=== PATIENT | male | born 1945 | race Caucasian/White ===

== ENCOUNTER 2023-08-31 10:53 | Outpatient (CLI) | payer MEDICARE, OTHER ==
[2023-08-31 17:41] LABS: HCT - HEMATOCRIT 41.3 % (42.0-52.0); HGB - HEMOGLOBIN 13.5 g/dL (14.0-18.0); MEAN CORPUSCULAR HEMOGLOBIN 30.9 pg (27.0-31.0); MEAN CORPUSCULAR HGB CONC 32.7 g/dL (32.0-36.0); MEAN CORPUSCULAR VOLUME 94.5 fL (80.0-94.0); MEAN PLATELET VOLUME 10.4 fL (7.4-11.4); RED BLOOD COUNT 4.37 10^6/uL (4.70-6.10); RED CELL DISTRIBUTION WIDTH 12.9 % (12.0-15.0); WHITE BLOOD COUNT 7.2 x10^3/uL (4.8-10.8)
[2023-08-31 17:59] LABS: ALBUMIN 4.1 g/dL (3.2-5.5); ALBUMIN/GLOBULIN RATIO 1.4 (1.0-2.2); ALKALINE PHOSPHATASE 85 IU/L (42-121); ALT ALANINE AMINOTRANSFERASE 21 IU/L (10-60); AST ASPARTATE AMINOTRANSFERASE 18 IU/L (10-42); BILIRUBIN,TOTAL 0.5 mg/dL (0.2-1.0); BUN - BLOOD UREA NITROGEN 19 mg/dL (6-20); CALCIUM 9.8 mg/dL (8.5-10.3); CARBON DIOXIDE - CO2 26 mmol/L (21-32); CHLORIDE 101 mmol/L (101-111); CHOL/HDL RATIO 3.8 (<5.0); CHOLESTEROL 195 mg/dL; CREATININE 1.2 mg/dL (0.6-1.3); GFR - MDRD 59 (>89); GLUCOSE 313 mg/dL (74-104); HDL CHOLESTEROL 51 mg/dL; LDL CHOLESTEROL,CALCULATED 94 mg/dL; LDL/HDL RATIO 1.8 (<3.6); POTASSIUM 4.3 mmol/L (3.5-4.5); SODIUM 137 mmol/L (135-145); TRIGLYCERIDES 249 mg/dL (48-352); VLDL CHOLESTEROL 50 mg/dL
[2023-08-31 18:07] LABS: THYROID STIMULATING HORMONE 2.94 uIU/mL (0.34-5.60)
[2023-08-31 18:12] LABS: FERRITIN 22.1 ng/mL (23.9-336.2)
[2023-08-31 21:10] LABS: ESTIMATED AVERAGE GLUCOSE 212 mg/dL (70-100)
== END 2023-08-31 10:54 | disposition home or self-care (01) ==
LOC: LAB.N 10:53
PROVIDERS: ATTEND Family Medicine
DX: I10 Essential (primary) hypertension (principal); G47.00 Insomnia, unspecified; G25.81 Restless legs syndrome; E11.65 Type 2 diabetes mellitus with hyperglycemia; N40.1 Benign prostatic hyperplasia with lower urinary tract symptoms
CPT/HCPCS: 36415; 80053; 80061; 82728; 83036; 83721; 83880; 84153; 84443; 85027

== ENCOUNTER 2023-09-23 15:32 | Emergency (ER) | payer MEDICARE, OTHER ==
[2023-09-23 16:09] LABS: BASOPHILS % (AUTO) 0.4 %; EOSINOPHILS # (AUTO) 0.1 10^3/uL (0.0-0.7); EOSINOPHILS % (AUTO) 1.3 %; HCT - HEMATOCRIT 43.9 % (42.0-52.0); HGB - HEMOGLOBIN 14.8 g/dL (14.0-18.0); LYMPHOCYTES # (AUTO) 2.5 10^3/uL (1.5-3.5); LYMPHOCYTES % (AUTO) 24.5 %; MEAN CORPUSCULAR HEMOGLOBIN 31.8 pg (27.0-31.0); MEAN CORPUSCULAR HGB CONC 33.7 g/dL (32.0-36.0); MEAN CORPUSCULAR VOLUME 94.2 fL (80.0-94.0); MONOCYTES # (AUTO) 0.9 10^3/uL (0.0-1.0); MONOCYTES % (AUTO) 8.3 %; NEUTROPHILS # (AUTO) 6.7 10^3/uL (1.5-6.6); NEUTROPHILS % (AUTO) 64.9 %; PLT - PLATELET COUNT 224 10^3/uL (130-450); RED BLOOD COUNT 4.66 10^6/uL (4.70-6.10); RED CELL DISTRIBUTION WIDTH 12.6 % (12.0-15.0); WHITE BLOOD COUNT 10.4 x10^3/uL (4.8-10.8)
[2023-09-23 16:22] LABS: ALBUMIN 4.6 g/dL (3.2-5.5); ALBUMIN/GLOBULIN RATIO 1.5 (1.0-2.2); BILIRUBIN,TOTAL 0.6 mg/dL (0.2-1.0); CREATININE 1.5 mg/dL (0.6-1.3); POTASSIUM 3.5 mmol/L (3.5-4.5); TOTAL PROTEIN 7.7 g/dL (6.4-8.9)
[2023-09-23 16:29] LABS: TROPONIN I HIGH SENSITIVITY 10.7 ng/L (2.3-19.7)
--- NOTE | 2023-09-23 16:57 | XRAY Report ---
PROCEDURE: Chest 1V INDICATIONS: Chest pain TECHNIQUE: One view of the chest was acquired. COMPARISON: None. FINDINGS: Surgical changes and devices: Left-sided pacer. Lungs and pleura: No pleural effusions or pneumothorax. Lungs are clear. Mediastinum: Mediastinal contours appear normal. Heart size is normal. Bones and chest wall: No suspicious bony lesions. Overlying soft tissues appear unremarkable. IMPRESSION: No acute cardiopulmonary process. Reviewed by: Rito Mcdermott MD on 09/23/2023 4:56 PM PST Approved by: Rito Mcdermott MD on 09/23/2023 4:56 PM [facility] Station ID: [id number]
--- NOTE | 2023-09-23 17:20 | ED Physician Documentation ---
PD HPI DYSPNEA - Stated complaint Stated Complaint: SOA,FATIGUE - Chief complaint Chief Complaint: Cardiac - History obtained from History obtained from: Patient, Family - Additional information Additional information: 78-year-old male who is morbidly obese poorly controlled type 2 diabetes had a pacemaker placed about 1 year ago presents emergency department for increased shortness of air. Patient says over the last couple weeks he feels like his pants are getting a lot tighter on him and he is feeling overall larger with increased shortness of air. He has had no medication changes no diet changes. He reached out to his professional architect to see if there has been any cardiac events through monitoring of the pacemaker and they have not been able to visualize anything. He also has a CGM for his type 2 diabetes normally he runs really high he takes 40 units of glargine twice a day and this morning took 40 units of lispro for his sliding scale insulin. He said he had no diet changes today but as he has been here throughout the ER visit he feels like he is having a hard time keeping his blood sugar up blood sugar comes down to the 60s 70s he will eat some crackers and it continues to come down. He denies any chest pain no recent upper respiratory infection symptoms no fevers or chills. PD PAST MEDICAL HISTORY - Past Medical History Past Medical History: Yes Cardiovascular: Hypertension, Other Endocrine/Autoimmune: Type 2 diabetes - Past Surgical History Past Surgical History: Yes General: Appendectomy, Other Cardiovascular: Pacemaker - Allergies Allergies/Adverse Reactions: Allergies Allergy/AdvReac Type Severity Reaction Status Date / Time No Known Drug Allergies Allergy Verified 09/23/23 15:46 - Social History Does the pt smoke?: No Smoking Status: Never smoker PD ED PE NORMAL - Vitals Vital signs reviewed: Yes - General General: Alert and oriented X 3, No acute distress, Well developed/nourished - HEENT HEENT: PERRL, EOMI, Moist mucous membranes - Cardiac Cardiac: Strong equal pulses, Other (irregular, pacemaker) - Respiratory Respiratory: No respiratory distress, Other (diminshed bilat) - Abdomen Abdomen: Normal bowel sounds, Soft, Non tender, Non distended - Derm Derm: Other (BLE cyanotic, appears to have chronic Venous stasis) - Extremities Extremities: No calf tenderness / cord (non pitting edeme to BLE) Results - Vitals Vitals: Vital Signs - 24 hr 09/23/23 09/23/23 09/23/23 15:39 17:49 19:35 Temperature 36.6 C Heart Rate 87 105 H 107 H Respiratory 22 23 22 Rate Blood Pressure 140/72 H 188/109 H 165/96 H O2 Saturation 98 91 L 94 09/23/23 21:15 Temperature Heart Rate 88 Respiratory 18 Rate Blood Pressure 182/96 H O2 Saturation 98 Oxygen O2 Source Room air - EKG (time done) 1602 EKG releavant findings:: EKG personally interpreted by author of this note. Relevant findings are: Rate: Rate (enter#) (83) Rhythm: Paced (V paced) Bovina: LAD Intervals: LBBB QRS: Normal Ischemia: Normal ST segments 1833 EKG releavant findings:: EKG personally interpreted by author of this note. Relevant findings are: Rate: Rate (enter#) (98) Rhythm: Other (V-paced, bigeminy) Bovina: LAD Intervals: Prolonged VA - Labs Labs: Laboratory Tests 09/23/23 09/23/23 09/23/23 16:03 16:03 16:03 WBC 10.4 RBC 4.66 L Hgb 14.8 Hct 43.9 MCV 94.2 H MCH 31.8 H MCHC 33.7 RDW 12.6 Plt Count 224 MPV 9.0 Neut # (Auto) 6.7 H Lymph # (Auto) 2.5 Dewitt # (Auto) 0.9 Eos # (Auto) 0.1 Baso # (Auto) 0.0 Absolute Nucleated RBC 0.00 Nucleated RBC % 0.0 Sodium 137 Potassium 3.5 Chloride 101 Carbon Dioxide 29 Anion Gap 7.0 BUN 21 H Creatinine 1.5 H Estimated GFR (MDRD) 45 L Glucose 71 L Calcium 10.0 Total Bilirubin 0.6 AST 24 ALT 24 Alkaline Phosphatase 87 Troponin I High Sens 10.7 B-Natriuretic Peptide 15 Total Protein 7.7 Albumin 4.6 Globulin 3.1 Albumin/Globulin Ratio 1.5 Lipase 28 - Rads (name of study) chest xray Relevant Findings:: Final report received, EMP independent interpretation of test (no cardiomegaly, lungs clear) PD Medical Decision Making - ED course ED course: 78-year-old male with morbid obesity and poorly controlled type 2 diabetes presents with shortness of air and concerns of weight gain without any change in diet per patient. Hematology does not reveal any leukocytosis no anemia, CMP does not have any electrolyte abnormalities, potassium 3.5, overall kidney function appears to be unremarkable, glucose is 71 which is abnormal for patient. He says that he takes long-acting and short acting insulin has not had any change in his diet today. He will be told to skip his evening basal insulin tonight. His BNP is not elevated making me less suspicious of this being possibly related to heart failure exacerbation, his troponin is also found to be within normal limits. He had a 1 view initial chest x-ray complete which did not show any cardiomegaly or other acute abnormalities but because patient is continuing to complain of ongoing shortness of air and because of his past medical history as well as his age we will do a CTA to rule out possible pulmonary embolism or other acute findings as Wells score for PE is 3. CTA does not reveal any acute abnormalities and does not reveal a pulmonary embolism. Blood sugar came back up on its own. Patient was informed his findings and that everything overall is unremarkable. He was informed to follow-up with his primary care provider and to look into possibly working on diet control for his labile type 2 diabetes as well as his recent weight gain. I am not concerned of any CHF exacerbation, EKG does not appear to be ischemic, he has no smoking history not worried about this being a COPD exacerbation, he is satting well. He safe for discharge she was given strict return precautions and told to follow-up with his primary care provider about your visit. Departure - Departure Disposition: 01 Home, Self Care Clinical Impression: Shortness of breath, Weight gain Instructions: Weight Manage Get Started Comments: Thank you for trusting us with your care we have done a very thorough and complete exam and I am not seeing any acute abnormalities at this time that could be contributing to your weight gain and shortness of breath. Your CTA does not show any concerning symptoms that this could be related to a possible pulmonary embolism, or heart failure. Please follow-up with your primary care provider about your ongoing weight gain that you are experiencing as well as her shortness of breath but I think that moving forward the best bet would be to start working on trying to work on your diet to help with some weight loss. Please come back to the emergency department if you start to experience any chest pain, fevers or chills, increased shortness of breath worse than what it is now, or any other concerning symptoms. Wishing you a speedy recovery! Forms: PCP List Discharge Date/Time: 09/23/23 21:15
[2023-09-23] MEDS ORDERED: iohexoL-300 100 ML VIAL ONE (18:47)
[2023-09-23] MEDS ORDERED: iohexoL-300 100 ML VIAL IVP ONE (19:56)
--- NOTE | 2023-09-23 20:20 | CT Report ---
PROCEDURE: Angio Chest INDICATIONS: SOA CONTRAST: 80mL Omni 300 TECHNIQUE: After the administration of intravenous contrast, 2 mm axial images were acquired from the pulmonary apices to the posterior costophrenic angles during the arterial phase. In addition, 1 mm lung kernel and 5 mm soft tissue kernel reconstructions were performed. 3-dimensional coronal oblique maximum int ensity projection (MIP) reformats, 8 mm axial MIP, and 5 mm coronal and sagittal MPR reformats were t hen performed through the thorax. For radiation dose reduction, the following was used: automated exp osure control, adjustment of mA and/or kV according to patient size. COMPARISON: None. FINDINGS: Image quality: Diagnostic. Large vessels: No filling defects within the opacified pulmonary arteries, accounting for motion and contrast timing. No evidence of acute aortic syndrome or aortic aneurysm. Lungs and pleura: No acute consolidation. No pleural effusions. No pneumothorax. No suspicious pulmo nary nodules which require follow up. Bibasilar atelectasis. No septal thickening or nodularity. Vis ualized airways are clear. Mediastinum: Heart size is normal. No pericardial effusion. Multivessel coronary artery atherosclerot ic calcifications. No large vessel abnormality. No mediastinal adenopathy by size criteria. Chest wall and lower neck: Thyroid is unremarkable. No axillary or supraclavicular adenopathy by size . Thoracic spinal cord stimulator leads are noted. Left-sided cardiac pacemaker device is in place. Bones: No aggressive osseous abnormality. No acute compression fractures. Multilevel spondylosis. Upper Abdomen: Cholelithiasis without CT evidence for acute cholecystitis. IMPRESSION: CT angiogram of the chest without evidence for acute pulmonary embolus or acute right-sided heart str ain. No acute cardiopulmonary abnormalities identified. Atherosclerotic vascular disease. Cholelithiasis without CT evidence for acute cholecystitis. Reviewed by: Erickson Johnson MD on 09/23/2023 8:19 PM PST Approved by: Erickson Johnson MD on 09/23/2023 8:19 PM PST Station ID: [id number]
[2023-09-23 21:21] VITALS: BP 182/96; O2SAT 98
== END 2023-09-23 21:15 | disposition home or self-care (01) ==
LOC: ED 15:32
DX: R06.02 Shortness of breath (principal); E66.01 Morbid (severe) obesity due to excess calories; E11.9 Type 2 diabetes mellitus without complications; I10 Essential (primary) hypertension; Z79.4 Long term (current) use of insulin; Z95.0 Presence of cardiac pacemaker
CPT/HCPCS: 36415; 71045; 71275; 80053; 83690; 83880; 84484; 85025; 93005; 99284; Q9967

== ENCOUNTER 2023-10-08 13:46 | Outpatient (CLI) | payer MEDICARE, OTHER ==
--- NOTE | 2023-10-08 14:26 | Sleep Patient Instructions ---
Sleep Center Visit Summary - Patient Visit Information Reason for Visit: Initial consultation - Patient Instructions Additional Instructions: You will continue with CPAP therapy with pressure set at 14-20 cmH2O. A supply prescription will be updated with your DME once we have a copy of last sleep study. If we cannot obtain a copy, we will have to have you do a sleep study to verify diagnosis. We encourage you to continue to try to lose weight. Please follow up with the sleep care office in 1 year if able to get your sleep study or after sleep study if needed. - Clinic Information Contact: [facility] [address] [place] [address] [email or web address] T: [phone]
--- NOTE | 2023-10-08 14:36 | SLEEP CARE CONSULTATION ---
Information from patient questionnaire entered by Tari Escudero. I have reviewed and concur with the information entered by Tari Escudero. This document represents the service I personally performed and the decisions made by me, Anayeli Snell ARNP. History of Present Illness Service Date and Time: 10/08/2023 1346 Reason for Visit: New patient, Previously diagnosed sleep apnea, sleep apnea on CPAP therapy Chief Complaint: reports: Other (UPDATE SUPPLIES) Date of Onset: 15YRS Usual bedtime: 11PM Time it takes to fall asleep: LESS THAN 10 MINS Snores at night: No Observed to quit breathing while asleep: No Sleeps alone due to snoring: No Number of times waking at night: 1 Reasons for waking at night: reports: Bathroom Toss, Turn, or Twitch while sleeping: No Recalls having dreams: Yes Feels refreshed in the morning: No Morning headache: No Sleepy or fatigued during the day: Yes Ever fallen asleep while driving: Yes Takes day naps: Yes Dreams during day naps: Yes Prior sleep studies: Yes Year and Where: 20YRS AGO? [facility] Additional HPI information: ABBY NEFF was previously diagnosed to have unknown, AHI unknown, sleep apnea- hypopnea syndrome and comes in today for CPAP therapy. He does not remember where his last sleep study done in early in [place], [place]. He did remember the last sleep clinic was [facility] in [place], [place]. We will see if we can get copy of sleep study from last sleep provider or his DME. - Parasomnia Symptoms Ever been unable to move upon waking from sleep: No Walks in sleep: No Talks in sleep: No Ever acted out dreams in sleep: No Ever felt weak in the knees when startled or emotional: No Bothered by creepy, crawly, restless sensations in legs: Yes Problems with memory or concentration: Yes CPAP Compliance Data - Data Reviewed with Patient Average duration of nightly device use: 10 hours 20 minutes Compliance rate %: 96.7 ( days used) Current pressure setting (cmH2O): 14-20 Average residual AHI: 1.4 Central apnea: 0.1 Obstructive apnea: 0.9 Hypopnea: 0.4 Average large leak: 9 mins 23 secs Compliance data discussion: He has a [employer] Dreamstation that he says was not affected by the recall. He obtained this CPAP he thinks 15 years ago. He has been getting his supplies from [facility]. He is using a full face mask, ResMed AirFit F20, medium cushion. Subjective Patient concerns: reports: mask discomfort (cushion seems small, resting just under bottom lip), dry mouth, nose, throat (dry mouth). denies: aerophagia, air blowing in eyes, mask leak noise, condensation in mask/hose, nasal congestion, epistaxis Observed to snore while using device: No Current pressure setting perceived as: comfortable On therapy, patient: reports: sleeping better, awakening more refreshed, being more awake and alert during the day, more rested overall. 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 Patient is and lives in . Have you smoked in the past 12 months: No Cigarettes per day (20/pack): 40 Years of smokin Quit date: 1988 Smoking Pack Years: 30.0 Alcohol use: No Caffeine use: Yes Caffeine amount and frequency: 1-2 DAILY Family History Family history of sleep disordered breathing: No Allergies and Home Medications Known drug allergies: No Drug allergies reviewed: Yes Home medication list reviewed: Yes (he forgot medication list; will bring in later) Allergy and home medication list: Allergies No Known Drug Allergies Allergy (Verified 10/06/23 11:47) Review of Systems Weight gain over past 5 years: 20 Cardiovascular: reports: high blood pressure, leg or foot swelling Respiratory: reports: shortness of breath, chronic cough Gastrointestinal: reports: heartburn Urinary: reports: frequency, impotence Neurological: reports: fainting or unconsciousness Psychiatric: reports: depression Ear/Nose/Throat: reports: nasal congestion, dry mouth/throat, wisdom teeth removed Endocrine: reports: increased urination Musculoskeletal: reports: back pain Immunologic: reports: itching Physical Exam Vital signs obtained and entered by: TARI Thomas MA Blood Pressure: 145/68 (LEFT ARM) Cuff size: regular Heart Rate: 83 O2 Saturation: 95 Height: 6 ft 2 in Weight: 322 lb 3.2 oz Body Mass Index: 41.3 BMI Classification: Morbidly Obese Neck circumference: 20.5 Mouth and throat: narrow oropharynx Soft palate: long Hard palate: normal Uvula: normal Uvula visualization: 0% Mallampati Class IV Tongue: enlarged in size with teeth verde on lateral edges Neck: normal w/o lymphadenopathy or thyromegaly Lungs: clear bilaterally Impression and Plan 1. Obstructive Sleep Apnea-Hypopnea Syndrome, unknown, with good treatment compliance and good apnea control. On CPAP therapy, the patient has better sleep quality and is more rested overall. He has a Dreamstation CPAP and he says that he checked and his machine was not on the recall. He is using [employer] for his supplies. He did not have a copy of his last sleep study. If we are unable to obtain copy than I explained that he will have to do another study to verify diagnosis. He voiced understanding. Patient's apnea severity and rationale for treatment to reduce apnea, improve sleep quality and reduce cardiovascular and cerebrovascular events was reviewed. I also reviewed the benefit of consistent device use of CPAP for hypertension, cardiac disease, diabetes, gastric reflux and depression. 2. Obesity, unspecified. Currently patients BMI is 41.3. Obesity increases the risk of apnea, CPAP pressure requirements and overall health risks especially cardiovascular and diabetes. Thus patient is advised to lose weight. * Continue auto CPAP pressure at 14-20 cmH2O * Update supply prescription once we have copy of last sleep study * Polysomnography if we need to verify diagnosis, unable to get copy of sleep study * Notify me if snoring with mask or feeling that the pressure is too much or too little * Attempt to lose weight * Call this office if any problems using CPAP * Return for follow up in 12 months if able to get copy of sleep study or after PSG/HST, or sooner if concerns arise Counseling Topics: Spare mask, Weight loss health impact Prescriptions: Device supplies Follow up with Sleep Care in: 1 year (or after PSG) Visit Type: In Office Time Spent with Patient (minutes): 36 Provider Statement: I spent 100% of the Face to Face Visit with the patient with greater than 50% spent counseling the patient and coordination of care.
[2023-10-08 15:02] VITALS: BP 145/68; O2SAT 95
== END 2023-10-08 13:47 | disposition home or self-care (01) ==
LOC: SC 13:46
PROVIDERS: ATTEND Nurse Practitioner Family
DX: G47.33 Obstructive sleep apnea (adult) (pediatric) (principal); E66.01 Morbid (severe) obesity due to excess calories; Z68.41 Body mass index [BMI] 40.0-44.9, adult; Z87.891 Personal history of nicotine dependence
CPT/HCPCS: 99203; G0463; 99212

== ENCOUNTER 2024-04-28 13:10 | Emergency (ER) | payer MEDICARE, OTHER ==
--- NOTE | 2024-04-28 15:24 | ED Physician Documentation ---
History of Present Illness - Stated complaint Stated Complaint: L LEG SWELLING - Chief complaint Chief Complaint: Ext Problem - Additonal information Additional information: Patient is a 78-year-old male presenting to the emergency department after his helper shear operator sent him here for evaluation after he was unable to get into wound care for another month. Patient has bilateral leg swelling and erythema with dry skin noted to bilateral legs. Patient wears compression stockings at baseline he is just not wearing them today but is very hindu with wearing them at home. He denies any fevers or chills. He has chronic bilateral venous stasis at home. He notes his legs have had no acute changes no new drainage no worsening swelling no increased pain. Elisabeth has been weraing compression stockings but not take any medications for his symptoms. PD PAST MEDICAL HISTORY - Past Medical History Past Medical History: Yes Cardiovascular: Hypertension, Other Endocrine/Autoimmune: Type 2 diabetes - Past Surgical History Past Surgical History: Yes General: Appendectomy, Other Cardiovascular: Pacemaker - Present Medications Home Medications: Ambulatory Orders Medication Instructions Recorded Confirmed Bacitracin Zinc Oint 1 applic TOP BID #1 each 04/28/24 Compress.stocking,Knee,Reg,Med 1 each MC DAILY #2 each 04/28/24 [T.e.d. Anti-Embolism Stocking] Hydrocortisone 1% Cream 1 applic TOP BID #28 gm 04/28/24 [Hydrocortisone] - Allergies Allergies/Adverse Reactions: Allergies Allergy/AdvReac Type Severity Reaction Status Date / Time lisinopril AdvReac Respiratory Verified 04/28/24 13:14 nickel AdvReac Rash Verified 04/28/24 13:14 - Social History Does the pt smoke?: No Smoking Status: Never smoker Does the pt drink ETOH?: No Does the pt have substance abuse?: No - Immunizations Immunizations are current?: Yes PD ED PE NORMAL - Vitals Vital signs reviewed: Yes - General General: Alert and oriented X 3 - HEENT HEENT: Atraumatic - Neck Neck: Supple, no meningeal sign - Cardiac Cardiac: RRR, No murmur, No gallop, No rub - Respiratory Respiratory: No respiratory distress, Clear bilaterally - Abdomen Abdomen: Normal bowel sounds, Non tender - Rectal Rectal: Deferred - Derm Derm: Other (Bilateral stasis dermatitis noted on examination with dry scaly skin to anterior and posterior legs. Mild erythema noted but equal bilaterally with 2+ pitting edema also equal bilaterally. Pulses intact good capillary refill and full range of motion of bilateral ankles digits and bilateral knees.) - Neuro Neuro: Alert and oriented X 3 Eye Opening: Spontaneous Motor: Obeys Commands Verbal: Oriented GCS Score: 15 Results - Vitals Vitals: Oxygen O2 Source Room air PD Medical Decision Making - ED course Complexity details: reviewed results ED course: Patient is a 78-year-old male presenting to the emergency department with bilateral leg rash and swelling. Patient notes this has been a chronic problem for him in the past he is following with wound care in the outpatient setting but unable to get in for an appointment for about a month. Patient does not put any creams or lotions on bilateral legs. He notes no new swelling no new pain no new discharge or fevers. Patient was sent here from his helper shear operator office after he called and updated them that he cannot see wound care for a month. Vital stable on arrival. Physical exam shows bilateral venous stasis dermatitis. Discussed with patient he can try creams that have sent to his pharmacy to help with his symptoms he should continue elevating bilateral legs and wearing compression stockings to help with the symptoms. Patient instructed to watch for any redness swelling discharge open wounds or pain to bilateral legs. Patient understands again he reports no new acute changes and feels bilateral leg swelling and irritation are stalbe and unchanging for multiple months. Departure - Departure Disposition: 01 Home, Self Care Clinical Impression: Venous stasis dermatitis of both lower extremities Condition: Good Prescriptions: Bacitracin Zinc Oint 1 applic TOP BID #1 each Hydrocortisone 1% Cream [Hydrocortisone] 1 applic TOP BID #28 gm Compress.stocking,Knee,Reg,Med [T.e.d. Anti-Embolism Stocking] 1 each DAILY #2 each Comments: Your leg palpable swelling and pain most likely secondary to stasis dermatitis. I have given you cream and topical antibiotic to help with symptoms at home. You should also use compression stockings to help with venous stasis. Keep leg elevated and watch for any pain in your legs fevers discharge from wounds or any other new or worsening symptoms return to the emergency department. Forms: PCP List Discharge Date/Time: 04/28/24 15:34
[2024-04-28 15:35] VITALS: BP 118/90; O2SAT 93
== END 2024-04-28 15:34 | disposition home or self-care (01) ==
LOC: ED 13:10
DX: I87.2 Venous insufficiency (chronic) (peripheral) (principal)
CPT/HCPCS: 99282; 99283

== ENCOUNTER 2025-02-03 20:37 | Observation (INO) ==
--- OUTSIDE RECORDS SUMMARY | 2025-02-03 20:56 | EXTERNAL MEDICAL SUMMARY RPT | Continuity of Care Document ---
Author Organization [place] Address [address] [address] Phone Care Team Providers Care Embroidery Assistant Name Role Phone Jackie Barnett Unavailable Unavailable Problems date description facility 2024-11-09 12:19 Shortness of breath [facility]24-[facility]20 14:13 Type 2 diabetes mellitus with h yperglycemia [facility] 2024-11-20 14:13 Essential (primary) hypertensio n [facility] 2024-11-20 14:13 Chronic kidney disease, stage 3 b [facility] 2024-11-20 14:53 Type 2 diabetes mellitus with h yperglycemia [facility] 2024-11-20 14:53 Essential (primary) hypertensio n [facility] 2024-11-20 14:53 Chronic kidney disease, stage 3 b [facility] 2024-11-29 10:57 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 [facility] 2024-11-29 10:57 Chronic diastolic (congestive) heart failure [facility] 2024-11-29 10:57 Venous insufficiency (chronic) (peripheral) [facility] 2024-11-29 10:57 Non-pressure chronic ulcer of other part of left lower leg limited to breakdown of skin [facility] 2024-11-29 10:57 Localized edema [facility] 2024-11-29 10:57 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 [facility] 2024-11-29 11:25 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 [facility] 2024-11-29 11:25 Chronic diastolic (congestive) heart failure [facility] 2024-11-29 11:25 Venous insufficiency (chronic) (peripheral) [facility] 2024-11-29 11:25 Non-pressure chronic ulcer of other part of left lower leg limited to breakdown of skin [facility] 2024-11-29 11:25 Localized edema [facility] 2024-11-29 11:25 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 [employer] 2024-12-06 10:55 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 [facility] 2024-12-06 10:55 Chronic diastolic (congestive) heart failure [facility] 2024-12-06 10:55 Venous insufficiency (chronic) (peripheral) [facility] 2024-12-06 10:55 Non-pressure chronic ulcer of other part of left lower leg limited to breakdown of skin [facility] 2024-12-06 10:55 Localized edema [facility] 2024-12-06 10:55 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 [employer] 2024-12-06 12:12 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 [facility] 2024-12-06 12:12 Chronic diastolic (congestive) heart failure [facility] 2024-12-06 12:12 Venous insufficiency (chronic) (peripheral) [facility] 2024-12-06 12:12 Non-pressure chronic ulcer of other part of left lower leg limited to breakdown of skin [facility] 2024-12-06 12:12 Localized edema [facility] 2024-12-06 12:12 detention (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 of [employer] 2024-12-12 11:32 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 [facility] 2024-12-12 11:32 Chronic diastolic (congestive) heart failure [facility] 2024-12-12 11:32 Venous insufficiency (chronic) (peripheral) [facility] 2024-12-12 11:32 Non-pressure chronic ulcer of other part of left lower leg limited to breakdown of skin [facility] 2024-12-12 11:32 Localized edema [facility] 2024-12-12 11:32 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 [employer] 2024-12-14 09:58 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 [facility] 2024-12-14 09:58 Chronic diastolic (congestive) heart failure [facility] 2024-12-14 09:58 Venous insufficiency (chronic) (peripheral) [facility] 2024-12-14 09:58 Non-pressure chronic ulcer of other part of left lower leg limited to breakdown of skin [facility] 2024-12-14 09:58 Localized edema [facility] 2024-12-14 09:58 detention (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 of [employer] 2024-12-14 11:31 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 [facility] 2024-12-14 11:31 Chronic diastolic (congestive) heart failure [facility] 2024-12-14 11:31 Venous insufficiency (chronic) (peripheral) [facility] 2024-12-14 11:31 Non-pressure chronic ulcer of other part of left lower leg limited to breakdown of skin [facility] 2024-12-14 11:31 Localized edema [facility] 2024-12-14 11:31 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 [employer] 2024-12-21 13:29 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 [facility] 2024-12-21 13:29 Chronic diastolic (congestive) heart failure [facility] 2024-12-21 13:29 Venous insufficiency (chronic) (peripheral) [facility] 2024-12-21 13:29 Non-pressure chronic ulcer of other part of left lower leg limited to breakdown of skin [facility] 2024-12-21 13:29 Localized edema [facility] 2024-12-21 13:29 detention (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 of [employer] 2024-12-21 13:47 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 [facility] 2024-12-21 13:47 Chronic diastolic (congestive) heart failure [facility] 2024-12-21 13:47 Venous insufficiency (chronic) (peripheral) [facility] 2024-12-21 13:47 Non-pressure chronic ulcer of other part of left lower leg limited to breakdown of skin [facility] 2024-12-21 13:47 Localized edema [facility] 2024-12-21 13:47 detention (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 of [employer] 2024-12-25 12:29 Type 2 diabetes mellitus with h yperglycemia [facility] 2024-12-25 12:29 Essential (primary) hypertensio n [facility] 2024-12-25 12:29 Chronic kidney disease, stage 3 unspecified [facility] 2024-12-26 07:19 Type 2 diabetes mellitus with h yperglycemia [facility] 2024-12-26 07:19 Essential (primary) hypertensio n [facility] 2024-12-26 07:19 Chronic kidney disease, stage 3 unspecified [facility] 2024-12-28 14:22 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 [facility] 2024-12-28 14:22 Chronic diastolic (congestive) heart failure [facility] 2024-12-28 14:22 Venous insufficiency (chronic) (peripheral) [facility] 2024-12-28 14:22 Orthostatic hypotension [facility] 2024-12-28 14:22 Local infection of t he skin and subcutaneous tissue, unspecified [facility] 2024-12-28 14:22 Non-pressure chronic ulcer of other part of left lower leg limited to breakdown of skin [facility] 2024-12-28 14:22 Other abnormalities of breathin g [facility] 2024-12-28 14:22 Other skin changes [facility] 2024-12-28 14:22 Localized edema [facility] 2024-12-28 14:22 detention (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 of anti coagulants [facility] 2024-12-28 14:22 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 [facility] 2024-12-28 15:06 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 [facility] 2024-12-28 15:06 Chronic diastolic (congestive) heart failure [facility] 2024-12-28 15:06 Venous insufficiency (chronic) (peripheral) [facility] 2024-12-28 15:06 Orthostatic hypotension [facility] 2024-12-28 15:06 Local infection of t he skin and subcutaneous tissue, unspecified [facility] 2024-12-28 15:06 Non-pressure chronic ulcer of other part of left lower leg limited to breakdown of skin [facility] 2024-12-28 15:06 Other abnormalities of breathin g [facility] 2024-12-28 15:06 Other skin changes [facility] 2024-12-28 15:06 Localized edema [facility] 2024-12-28 15:06 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 [facility] 2024-12-28 15:06 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 [facility] 2024-12-28 15:58 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 [facility] 2024-12-28 15:58 Chronic diastolic (congestive) heart failure [facility] 2024-12-28 15:58 Venous insufficiency (chronic) (peripheral) [facility] 2024-12-28 15:58 Orthostatic hypotension [facility] 2024-12-28 15:58 Local infection of t he skin and subcutaneous tissue, unspecified [facility] 2024-12-28 15:58 Non-pressure chronic ulcer of other part of left lower leg limited to breakdown of skin [facility] 2024-12-28 15:58 Other abnormalities of breathin g [facility] 2024-12-28 15:58 Other skin [facility] 2024-12-28 15:58 Localized edema [facility] 2024-12-28 15:58 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 [facility] 2024-12-28 15:58 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 [facility] 2025-01-05 14:23 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 [facility] 2025-01-05 14:23 Chronic diastolic (congestive) heart failure [facility] 2025-01-05 14:23 Venous insufficiency (chronic) (peripheral) [facility] 2025-01-05 14:23 Orthostatic hypotension [facility] 2025-01-05 14:23 Local infection of t he skin and subcutaneous tissue, unspecified [facility] 2025-01-05 14:23 Non-pressure chronic ulcer of other part of left lower leg limited to breakdown of skin [facility] 2025-01-05 14:23 Other abnormalities of breathin g [facility] 2025-01-05 14:23 Other skin changes [facility] 2025-01-05 14:23 Localized edema [facility] 2025-01-05 14:23 detention (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 of anti coagulants [facility] 2025-01-05 14:23 detention (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 of insu colten [facility] 2025-01-05 14:55 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 [facility] 2025-01-05 14:55 Chronic diastolic (congestive) heart failure [facility] 2025-01-05 14:55 Venous insufficiency (chronic) (peripheral) [facility] 2025-01-05 14:55 Orthostatic hypotension [facility] 2025-01-05 14:55 Local infection of t he skin and subcutaneous tissue, unspecified [facility] 2025-01-05 14:55 Non-pressure chronic ulcer of other part of left lower leg limited to breakdown of skin [facility] 2025-01-05 14:55 Other abnormalities of breathin g [facility] 2025-01-05 14:55 Other skin changes [facility] 2025-01-05 14:55 Localized edema [facility] 2025-01-05 14:55 detention (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 of anti coagulants [facility] 2025-01-05 14:55 detention (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 of insu colten [facility] 2025-01-10 09:13 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 [facility] 2025-01-10 09:13 Chronic diastolic (congestive) heart failure [facility] 2025-01-10 09:13 Venous insufficiency (chronic) (peripheral) [facility] 2025-01-10 09:13 Orthostatic hypotension [facility] 2025-01-10 09:13 Local infection of t he skin and subcutaneous tissue, unspecified [facility] 2025-01-10 09:13 Non-pressure chronic ulcer of other part of left lower leg limited to breakdown of skin [facility] 2025-01-10 09:13 Other abnormalities of breathin g [facility] 2025-01-10 09:13 Other skin changes [facility] 2025-01-10 09:13 Localized edema [facility] 2025-01-10 09:13 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 [facility] 2025-01-10 09:13 detention (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 of insu colten [facility] 2025-01-10 15:42 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 [facility] 2025-01-10 15:42 Chronic diastolic (congestive) heart failure [facility] 2025-01-10 15:42 Venous insufficiency (chronic) (peripheral) [facility] 2025-01-10 15:42 Orthostatic hypotension [facility] 2025-01-10 15:42 Local infection of t he skin and subcutaneous tissue, unspecified [facility] 2025-01-10 15:42 Non-pressure chronic ulcer of other part of left lower leg limited to breakdown of skin [facility] 2025-01-10 15:42 Other abnormalities of breathin g [facility] 2025-01-10 15:42 Other skin changes [facility] 2025-01-10 15:42 Localized edema [facility] 2025-01-10 15:42 detention (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 of anti coagulants [facility] 2025-01-10 15:42 detention (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 of insu colten [facility] 2025-01-10 16:10 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 [facility] 2025-01-10 16:10 Chronic diastolic (congestive) heart failure [facility] 2025-01-10 16:10 Venous insufficiency (chronic) (peripheral) [facility] 2025-01-10 16:10 Orthostatic hypotension [facility] 2025-01-10 16:10 Local infection of t he skin and subcutaneous tissue, unspecified [facility] 2025-01-10 16:10 Non-pressure chronic ulcer of other part of left lower leg limited to breakdown of skin [facility] 2025-01-10 16:10 Other abnormalities of breathin g [facility] 2025-01-10 16:10 [facility] 16:10 Localized edema [facility] 2025-01-10 16:10 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 [facility] 2025-01-10 16:10 detention (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 of insu colten [facility] 2025-01-10 16:13 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 [facility] 2025-01-10 16:13 Chronic diastolic (congestive) heart failure [facility] 2025-01-10 16:13 Venous insufficiency (chronic) (peripheral) [facility] 2025-01-10 16:13 Orthostatic hypotension [facility] 2025-01-10 16:13 Local infection of t he skin and subcutaneous tissue, unspecified [facility] 2025-01-10 16:13 Non-pressure chronic ulcer of other part of left lower leg limited to breakdown of skin [facility] 2025-01-10 16:13 Other abnormalities of breathin g [facility] 2025-01-10 16:13 Other skin changes [facility] 2025-01-10 16:13 Localized edema [facility] 2025-01-10 16:13 detention (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 of anti coagulants [facility] 2025-01-10 16:13 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 [facility] 2025-01-10 17:48 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 [facility] 2025-01-10 17:48 Chronic diastolic (congestive) heart failure [facility] 2025-01-10 17:48 Venous insufficiency (chronic) (peripheral) [facility] 2025-01-10 17:48 Orthostatic hypotension [facility] 2025-01-10 17:48 Local infection of t he skin and subcutaneous tissue, unspecified [facility] 2025-01-10 17:48 Non-pressure chronic ulcer of other part of left lower leg limited to breakdown of skin [facility] 2025-01-10 17:48 Other abnormalities of breathin g [facility] 2025-01-10 17:48 Other skin changes [facility] 2025-01-10 17:48 Localized edema [facility] 2025-01-10 17:48 detention (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 of anti coagulants [facility] 2025-01-10 17:48 detention (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 of insu colten [facility] 2025-01-10 17:57 Urinary tract infection, site n ot specified [facility] 2025-01-10 18:20 Urinary tract infection, site n ot specified [facility] 2025-01-11 00:05 Urinary tract infection, site n ot specified [facility] 2025-01-11 11:15 Urinary tract infection, site n ot specified [facility] 2025-01-11 11:46 Urinary tract infection, site n ot specified [facility] 2025-01-23 08:38 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, gases, fumes and vapors [facility] 2025-01-23 08:38 Dyspnea, unspecified [facility] 2025-01-23 08:38 Contact with and (suspected) ex posure to asbestos [facility] 2025-01-23 13:32 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, gases, fumes and vapors [facility] 2025-01-23 13:32 Dyspnea, unspecified [facility] 2025-01-23 13:32 Contact with and (suspected) ex posure to asbestos [facility] 2025-01-23 13:33 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 [facility] 2025-01-29 16:13 Type 2 diabetes mellitus with h yperglycemia [facility] 2025-01-29 16:13 Essential (primary) hypertensio n [facility] 2025-01-29 16:13 Sick sinus syndrome [facility] 2025-01-29 16:13 Chronic diastolic (congestive) heart failure [facility] 2025-01-29 16:13 Venous insufficiency (chronic) (peripheral) [facility] 2025-01-29 16:13 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, gases, fumes and vapors [facility] 2025-01-29 16:13 Pressure ulcer of sacral region , stage 2 [facility] 2025-01-29 16:13 Chronic kidney disease, stage 3 unspecified [facility] 2025-01-29 16:13 Urinary tract infection, site n ot specified [facility] 2025-01-29 16:13 Benign prostatic hyp erplasia with lower urinary tract symptoms [facility] 2025-01-29 16:13 Feeling of incomplete bladder e mptying [facility] 2025-01-29 16:13 Other amnesia [facility] 2025-01-29 16:13 Infection and inflam matory reaction due to indwelling urethral catheter, initial encounter [facility] 2025-01-29 16:13 Other reduced mobility [facility] 2025-01-29 16:13 Contact with and (suspected) ex posure to asbestos [facility] 2025-01-29 16:13 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 [facility] 2025-01-30 07:29 Type 2 diabetes kimberly itus with diabetic chronic kidney disease [facility] 2025-01-30 07:29 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 [facility] 2025-01-30 07:29 Type 2 diabetes mellitus with h yperglycemia [facility] 2025-01-30 07:29 Essential (primary) hypertensio n [facility] 2025-01-30 07:29 Sick sinus syndrome [facility] 2025-01-30 07:29 Chronic diastolic (congestive) heart failure [facility] 2025-01-30 07:29 Venous insufficiency (chronic) (peripheral) [facility] 2025-01-30 07:29 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, gases, fumes and vapors [facility] 2025-01-30 07:29 Pruritus, unspecified [facility] 2025-01-30 07:29 Pressure ulcer of sacral region , stage 2 [facility] 2025-01-30 07:29 Chronic kidney disease, stage 3 unspecified [facility] 2025-01-30 07:29 Urinary tract infection, site n ot specified [facility] 2025-01-30 07:29 Benign prostatic hyp erplasia with lower urinary tract symptoms [facility] 2025-01-30 07:29 Other forms of dyspnea [facility] 2025-01-30 07:29 Feeling of incomplete bladder [facility] 2025-[facility]30 07:29 Other difficulties with micturi tion [facility] 2025-01-30 07:29 Other amnesia [facility] 2025-01-30 07:29 Infection and inflam matory reaction due to indwelling urethral catheter, initial encounter [facility] 2025-01-30 07:29 Other reduced mobility [facility] 2025-01-30 07:29 Contact with and (suspected) ex posure to asbestos [facility] 2025-01-30 07:29 detention (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 of insu colten [facility] 2025-01-30 09:31 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 [facility] 2025-01-30 09:31 Chronic diastolic (congestive) heart failure [facility] 2025-01-30 09:31 Venous insufficiency (chronic) (peripheral) [facility] 2025-01-30 09:31 Orthostatic hypotension [facility] 2025-01-30 09:31 Local infection of t he skin and subcutaneous tissue, unspecified [facility] 2025-01-30 09:31 Pressure ulcer of sacral region , stage 2 [facility] 2025-01-30 09:31 Non-pressure chronic ulcer of other part of left lower leg limited to breakdown of skin [facility] 2025-01-30 09:31 Other abnormalities of breathin g [facility] 2025-01-30 09:31 Other skin changes [facility] 2025-01-30 09:31 Localized edema [facility] 2025-01-30 09:31 detention (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 of anti coagulants [facility] 2025-01-30 09:31 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 [facility] 2025-02-02 13:33 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 [facility] 2025-02-02 13:33 Chronic diastolic (congestive) heart failure [facility] 2025-02-02 13:33 Venous insufficiency (chronic) (peripheral) [facility] 2025-02-02 13:33 Orthostatic hypotension [facility] 2025-02-02 13:33 Local infection of t he skin and subcutaneous tissue, unspecified [facility] 2025-02-02 13:33 Pressure ulcer of sacral region , stage 2 [facility] 2025-02-02 13:33 Non-pressure chronic ulcer of other part of left lower leg limited to breakdown of skin [facility] 2025-02-02 13:33 Other abnormalities of breathin g [facility] 2025-02-02 13:33 Other skin changes [facility] 2025-02-02 13:33 Localized edema [facility] 2025-02-02 13:33 detention (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 of anti coagulants [facility] 2025-02-02 13:33 detention (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 of insu colten [facility] 2025-02-02 14:19 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 [facility] 2025-02-02 14:19 Chronic diastolic (congestive) heart failure [employer] [facility] 2025-02-02 14:19 Venous insufficiency (chronic) (peripheral) [facility] 2025-02-02 14:19 Orthostatic hypotension [facility] 2025-02-02 14:19 Local infection of t he skin and subcutaneous tissue, unspecified [employer] [facility] 2025-02-02 14:19 Pressure ulcer of sacral region , stage 2 [employer] [facility] 2025-02-02 14:19 Non-pressure chronic ulcer of other part of left lower leg limited to breakdown of skin [facility] 2025-02-02 14:19 Other abnormalities of breathin g [employer] [facility] 2025-02-02 14:19 Other skin changes [facility] 2025-02-02 14:19 Localized edema [facility] 2025-02-02 14:19 detention (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 of anti coagulants [facility] 2025-02-02 14:19 detention (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 of insu colten [facility] 2025-02-02 14:20 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 [facility] 2025-02-02 14:20 Chronic diastolic (congestive) heart failure [facility] 2025-02-02 14:20 Venous insufficiency (chronic) (peripheral) [facility] 2025-02-02 14:20 Orthostatic hypotension [facility] 2025-02-02 14:20 Local infection of t he skin and subcutaneous tissue, unspecified [employer] [facility] 2025-02-02 14:20 Pressure ulcer of sacral region , stage 2 [employer] [facility] 2025-02-02 14:20 Non-pressure chronic ulcer of other part of left lower leg limited to breakdown of skin [facility] 2025-02-02 14:20 Other abnormalities of breathin g [facility] 2025-02-02 14:20 Other skin changes [facility] 2025-02-02 14:20 Localized edema [facility] 2025-02-02 14:20 detention (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 of anti coagulants [facility] 2025-02-02 14:20 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 [facility] 2025-02-02 14:22 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 [facility] 2025-02-02 14:22 Chronic diastolic (congestive) heart failure [facility] 2025-02-02 14:22 Venous insufficiency (chronic) (peripheral) [facility] 2025-02-02 14:22 Orthostatic hypotension [facility] 2025-02-02 14:22 Local infection of t he skin and subcutaneous tissue, unspecified [employer] [facility] 2025-02-02 14:22 Pressure ulcer of sacral region , stage 2 [facility] 2025-02-02 14:22 Non-pressure chronic ulcer of other part of left lower leg limited to breakdown of skin [facility] 2025-02-02 14:22 Other abnormalities of breathin g [facility] 2025-02-02 14:22 Other skin changes [facility] 2025-02-02 14:22 Localized edema [facility] 2025-02-02 14:22 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 [facility] 2025-02-02 14:22 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 [facility] Results/Labs test date facility value unit notes Result panel 1 CUL,WOUND (AEROBIC) 2024-12-14 10:45 [facility] (missing) (missing) (missing) CUL,WOUND (AEROBIC) 2024-12-14 10:45 [facility] 11+ GROWTH (missing) (missing) CUL,WOUND (AEROBIC) 2024-12-14 10:45 [facility] CC.1ORG 1 COLONY COUNT* (missing) (missing) CUL,WOUND (AEROBIC) 2024-12-14 10:45 [facility] CC.6COLONY COUNT (missing) (missing) CUL,WOUND (AEROBIC) 2024-12-14 10:45 [facility] GPGRAM POSITIVE GROWTH TO BE FURTHER IDENTIFIED (missing) (missing) CUL,WOUND (AEROBIC) 2024-12-14 10:45 [facility] GRAM STAIN (missing) (missing) CUL,WOUND (AEROBIC) 2024-12-14 10:45 [facility] IDMICID/LANE COM* (missing) (missing) CUL,WOUND (AEROBIC) 2024-12-14 10:45 [facility] NO ORGANISMS SEEN (missing) (missing) CUL,WOUND (AEROBIC) 2024-12-14 10:45 [facility] ORG.1PRELIM ORG ID* (missing) (missing) CUL,WOUND (AEROBIC) 2024-12-14 10:45 [facility] RARE WHITE BLOOD CELL SEEN (missing) (missing) CUL,WOUND (AEROBIC) 2024-12-14 10:45 [facility] SENSNISENSITIVITIES NOT INDICATED FOR THIS ISOLATE (missing) (missing) O:STAPSE 2024-12-14 10:45 [facility] STAPSESTAPH PSEUDOINTERMEDIUSSTAPH PSEUDOINTERMEDIUS (missing) (missing) Result panel 2 AMPICILLIN 2025-01-10 16:20 [facility] (missing) (missing) This organism is NEGATIVE for Extended Spectrum Beta Lactamase AMPICILLIN 2025-01-10 16:20 [facility] >=32 (missing) (missing) CEFAZOLIN 2025-01-10 16:20 [facility] >=64 (missing) (missing) CEFEPIME 2025-01-10 16:20 [facility] <=0.12 (missing) (missing) ERTAPENEM 2025-01-10 16:20 [facility] <=0.12 (missing) (missing) LEVOFLOXACIN 2025-01-10 16:20 [facility] <=0.12 (missing) (missing) CEFTRIAXONE 2025-01-10 16:20 [facility] <=0.25 (missing) (missing) CIPROFLOXACIN 2025-01-10 16:20 [facility] <=0.25 (missing) (missing) IMIPENEM 2025-01-10 16:20 [facility] <=0.25 (missing) (missing) GENTAMICIN 2025-01-10 16:20 [facility] <=1 (missing) (missing) TOBRAMYCIN 2025-01-10 16:20 [facility] <=1 (missing) (missing) AMPICILLIN/SULBACT AM 2025-01-10 16:20 [facility] <=2 (missing) (missing) TRIMETHOPRIM/SULFA METHOXAZOLE 2025-01-10 16:20 [facility] <=20 (missing) (missing) CEFAZOLIN 2025-01-10 16:20 [facility] <=4 (missing) (missing) PIPERACILLIN/TAZOB ACTAM 2025-01-10 16:20 [facility] <=4 (missing) (missing) CUL, URINE 2025-01-10 16:20 [facility] 100>100,000 CFU/mL (missing) (missing) NITROFURANTOIN 2025-01-10 16:20 [facility] 128 (missing) (missing) AMPICILLIN/SULBACT AM 2025-01-10 16:20 [email or web address] [employer] 16 (missing) (missing) NITROFURANTOIN 2025-01-10 16:20 [facility] 32 (missing) (missing) CUL, URINE 2025-01-10 16:20 [facility] [employer] 5050,000-100,000 CFU/mL (missing) (missing) CUL, URINE 2025-01-10 16:20 [facility] GNGRAM NEGATIVE GROWTH TO BE FURTHER IDENTIFIED (missing) (missing) CUL, URINE 2025-01-10 16:20 [email or web address] [employer] IDMIC.1ORG 1 ID/LANE COM* (missing) (missing) O:KLEOXY 2025-01-10 16:20 [email or web address] [employer] KLEOXYKLEBSIELLA OXYTOCAKLEBSIELLA OXYTOCA (missing) (missing) CUL, URINE 2025-01-10 16:20 [facility] ORG.1PRELIM ORG ID* (missing) (missing) O:PROVLG 2025-01-10 16:20 [email or web address] [employer] PROVLGPROTEUS VULGARIS.PROTEUS VULGARIS (missing) (missing) CUL, URINE 2025-01-10 16:20 [facility] Pending (missing) (missing) CUL, URINE 2025-01-10 16:20 [facility] [employer] UCC.1ORG 1 CC* (missing) (missing) CUL, URINE 2025-01-10 16:20 [facility] [employer] UCC.6COLONY COUNT (missing) (missing) CUL, URINE 2025-01-10 16:20 [facility] YIDENTIFICATION AND SENSITIVITIES TO FOLLOW (missing) (missing) Social History date description facility 2025-01-19 00:00 Ex-smoker (finding) [facility] Vital Signs date measurement value units 2025-01-19 00:00 BP_diastolic 66 mmHg 2025-01-19 00:00 BP_systolic 120 mmHg 2025-01-19 00:00 heart_rate 64 /min 2025-01-19 00:00 o2_saturation 95 % 2025-01-19 00:00 respiration_rate 28 /min 2025-01-19 00:00 temperature_metric 37.39 C 2025-01-19 00:00 temperature_standard 99.3 F
[2025-02-03 21:34] LABS: BASOPHILS % (AUTO) 0.3 %; EOSINOPHILS % (AUTO) 0.2 %; HCT - HEMATOCRIT 46.1 % (42.0-52.0); HGB - HEMOGLOBIN 15.2 g/dL (14.0-18.0); LYMPHOCYTES # (AUTO) 1.3 10^3/uL (1.5-3.5); LYMPHOCYTES % (AUTO) 10.3 %; MEAN CORPUSCULAR HEMOGLOBIN 31.2 pg (27.0-31.0); MEAN CORPUSCULAR VOLUME 94.7 fL (80.0-94.0); MEAN PLATELET VOLUME 10.2 fL (7.4-11.4); MONOCYTES % (AUTO) 8.3 %; NEUTROPHILS # (AUTO) 9.9 10^3/uL (1.5-6.6); NEUTROPHILS % (AUTO) 80.5 %; PLT - PLATELET COUNT 197 10^3/uL (130-450); RED BLOOD COUNT 4.87 10^6/uL (4.70-6.10); RED CELL DISTRIBUTION WIDTH 13.5 % (12.0-15.0); WHITE BLOOD COUNT 12.3 x10^3/uL (4.8-10.8)
[2025-02-03 21:35] LABS: MAGNESIUM 1.6 mg/dL (1.7-2.3)
[2025-02-03] MEDS: KETOROLAC 30 MG/ML VIAL IVP STA (21:38)
[2025-02-03] MEDS: SODIUM CHLORIDE 0.9% 1,000 ML IV STA ×2 (21:39→23:37)
[2025-02-03 21:41] LABS: ALBUMIN 3.9 g/dL (3.2-5.5); ALBUMIN/GLOBULIN RATIO 1.4 (1.0-2.2); BILIRUBIN,TOTAL 0.9 mg/dL (0.2-1.0); CALCIUM 9.3 mg/dL (8.5-10.3); CREATININE 1.8 mg/dL (0.6-1.3); POTASSIUM 4.1 mmol/L (3.5-4.5); TOTAL PROTEIN 6.6 g/dL (6.4-8.9)
[2025-02-03] MEDS: cefTRIAXone 2 GM VIAL IVP STA (22:12)
[2025-02-03 22:13] LABS: BILIRUBIN,URINE NEGATIVE (NEGATIVE); GLUCOSE, URINE (UA) >=1000 mg/dL (NEGATIVE); KETONES,URINE (UA) 15 mg/dL (NEGATIVE); LEUKOCYTE ESTERASE, URINE NEGATIVE (NEGATIVE); NITRITE,URINE NEGATIVE (NEGATIVE); OCCULT BLOOD,URINE LARGE (NEGATIVE); PROTEIN,URINE TRACE mg/dL (NEGATIVE); UROBILINOGEN,URINE 1 (NORMAL) E.U./dL (NORMAL)
--- NOTE | 2025-02-03 22:27 | XRAY Report ---
PROCEDURE: XR Chest 1V INDICATIONS: chest pain TECHNIQUE: One view of the chest was acquired. COMPARISON: 10/31/2024 FINDINGS AND IMPRESSION: Mild diffuse interstitial prominence and left lung base opacity, likely infectious versus edema. Consider future imaging surveillance to assess for resolution. Mild cardiomegaly. Left chest wall pulse generator and intrathecal device cardiac electrode leads. Degenerative osseous changes. Reviewed by: Mir Oliveira MD on 02/03/2025 10:26 PM PDT Approved by: Mir Oliveira MD on 02/03/2025 10:26 PM PDT Station ID: [id number]
[2025-02-03 22:32] LABS: CLARITY,URINE HAZY (CLEAR)
[2025-02-03 22:48] LABS: WBC,URINE 0-3 /HPF (0-3)
[2025-02-03 22:49] LABS: BACTERIA,URINE None Seen /HPF (None Seen); SQUAMOUS EPITHELIAL CELL,UR NONE SEEN (<= Few)
--- NOTE | 2025-02-03 23:00 | ED Physician Documentation ---
PD HPI DYSPNEA Stated complaint Stated Complaint: WEAKNESS, SOA Chief complaint Chief Complaint: General Additional information Additional information: Toñito Bess is a 79-year-old male with a history of asbestos exposure and pulmonary fibrosis who has recently had urinary tract infection with an indwelling Cook catheter. He has had the indwelling Cook for about 2 months and he was in to see Dr. Pan 3 weeks ago and was placed on a course of cephalexin. Despite being on the cephalexin the patient has developed a worsening of his cough and shortness of breath. He is also developed nausea and vomiting. He presents to the emergency department with a respiratory rate of 40 breaths/min. He indicates that this is normal for him. [place] Coma Scale Assess Eye opening: Spontaneous Verbal response: Oriented Motor response: Obeys Commands Total score: 15 Review of Systems Patient has acute dyspnea he does have a cough he has had low-grade fever . Is also complaining of nausea and vomiting. He is complaining of some pain in the left side of his neck. Meds/Allgy Home Medications Ambulatory Orders Medication Instructions Recorded Confirmed renae.stocking,knee,reg,smal #2 ea 04/28/24 01/29/25 (T.E.D. Anti-Embolism Stocking) Permanent Disabled Placard 08/21/24 01/29/25 amlodipine 10 mg tablet 10 mg PO QDAY 08/21/2402/04 apixaban 5 mg tablet (Eliquis) 5 mg PO BID 08/21/24 atorvastatin 20 mg tablet 20 mg PO QDAY 08/21/2402/04 cetirizine 10 mg tablet 10 mg PO QDAY 08/21/2402/04 duloxetine 60 mg capsule,delayed 60 mg PO DAILY 02/04/25 release empagliflozin 25 mg tablet 25 mg PO QDAY 08/21/2401/11 (Jardiance) flash glucose scanning reader 08/21/24 01/29/25 (FreeStyle Theresa 14 Day [place]) flash glucose sensor (FreeStyle 08/21/24 01/29/25 Theresa 2 Sensor kit) furosemide 20 mg tablet 40 mg PO QDAY 08/21/2402/04 insulin glargine 100 unit/mL (3 26 unit subcut BID 06/0602/04/25 mL) subcutaneous pen (Lantus Solostar U-100 Insulin) losartan 100 mg tablet 100 mg PO QDAY 08/21/2401/12 omeprazole 20 mg capsule,delayed 20 mg PO QDAY 4 02/04/25 release oxcarbazepine 300 mg tablet 300 mg PO BID 08/21/24 oxybutynin chloride 5 mg 5 mg PO DAILY 08/21/2402/04 tablet,extended release 24 hr ropinirole 2 mg tablet 2 mg PO HS 08/21/24 02/04/25 spironolactone 25 mg tablet 25 mg PO QDAY 08/21/24 walker 08/21/24 01/29/25 insulin lispro 200 unit/mL (3 mL) 1 sliding scale dose subcut TID 10/17/24 02/04/25 subcutaneous pen (Humalog KwikPen U-200 Insulin) tirzepatide [Mounjaro] 2.5 mg subcut .once a week 0 10/17/24 02/04/25 albuterol sulfate 90 mcg/actuation 2 puff inhalation Q ID PRN 10/31/24 01/29/25 aerosol inhaler (Ventolin HFA) shortness of breath or wheezing #8.5 grams trazodone 50 mg tablet 100 mg (2 x 50 mg) PO QDAY # 60 tabs 12/31/24 02/04/25 fluticasone propionate 50 See Rx Instructions .Route 0 01/20/25 02/04/25 mcg/actuation nasal .COMPLEX #16 grams spray,suspension sulfamethoxazole 400 1 tab PO BID #14 tabs 02/04/25 mg-trimethoprim 80 mg tablet (Bactrim) tamsulosin 0.4 mg capsule 0.8 mg PO HS 02/04/25 Allergies Allergies Allergy/AdvReac Type Severity Reaction Status Date / Time hydrochlorothiazide Allergy Mild "I don't Verified 02/03/25 20:55 know" lisinopril AdvReac Respiratory Verified 02/03/25 20:55 nickel AdvReac Rash Verified 02/03/25 20:55 PFS Active Problems All Active Problems (Updated 02/04/25 @ 04:46 by Avi Porter MD) Sepsis (Acute) Pneumonia (Acute) Pressure ulcer of sacral region, stage 2 (Acute) BPH (benign prostatic hyperplasia) (Acute) UTI (urinary tract infection) (Acute) Local infection of the skin and subcutaneous tissue, unspecified (Acute) Other abnormalities of breathing (Acute) 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 (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) Orthostatic hypotension (Acute) Other skin changes (Acute) Urinary retention (Acute) CHF (congestive heart failure) (Acute) Type 2 diabetes mellitus with other skin ulcer (Acute) Localized edema (Acute) Venous insufficiency (chronic) (peripheral) (Acute) Dyspnea (Acute) Mobility poor (Acute) Memory changes (Acute) Chronic GERD (Acute) Restless leg syndrome (Acute) CKD stage 3 due to type 2 diabetes mellitus (Acute) Sick sinus syndrome (Acute) 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 (Date/Year): 1988 Number of Years Smoked: 15 How many cigarettes a day do you smoke? (20 cigarettes=1 Pk): 40 Do you vape?: No Relationship: Do you feel safe in your home environment?: Yes Suffered physical, verbal, emotional, or financial abuse?: No History of Abuse: No ETOH Use: None Substance Use: denies use Exam Exam Vital Signs: Vital Signs x48h Temp Pulse Resp BP Pulse Ox 02/04/25 04:00 60 18 138/87 H 92 02/04/25 02:23 36.6 C 61 27 H 128/56 L 97 02/04/25 02:00 63 16 132/75 H 97 02/04/25 00:55 64 18 118/58 L 95 79-year-old male is tachypneic at rest and appears to be struggling for breath. He presents with normal blood pressure respiratory rate of 30 and afebrile. He is tachycardic oxygen saturations at 96%. The patient feels unwell and has a skin expression on his face which reveals this HENMT normocephalic and head/scalp atraumatic Eyes PERRL and EOMs intact bilaterally Respiratory breath sounds equal bilaterally The patient is tachypneic at rest with diminished breath sounds in the bases. Cardiovascular Tachycardic and regular with distant heart sounds Gastrointestinal The abdomen is protuberant but nontender to palpation. 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 and no movement abnormality noted Psychiatry mental status grossly normal, oriented x3, thought process normal, cooperative, affect normal, psychomotor activity normal and memory normal Skin skin color normal and no rash Results Vitals Vitals: Vital Signs - 24 hr 02/03/25 20:37 02/03/25 21:38 02/03/25 22:08 Temperature 37.1 C Temperature Source Oral Pulse Rate 107 H Respiratory Rate 30 H Blood Pressure 127/77 O2 Saturation 96 O2 Source Room air Pain Intensity 8 8 5 02/03/25 22:55 02/04/25 00:55 02/04/25 02:00 Temperature Temperature Source Pulse Rate 65 64 63 Respiratory Rate 29 H 18 16 Blood Pressure 135/62 H 118/58 L 132/75 H O2 Saturation 97 95 97 O2 Source Room air Room air Room air Pain Intensity 02/04/25 02:23 02/04/25 03:15 02/04/25 03:45 Temperature 36.6 C Temperature Source Temporal Artery Scan Pulse Rate 61 Respiratory Rate 27 H Blood Pressure 128/56 L O2 Saturation 97 O2 Source Room air Pain Intensity 6 5 4 02/04/25 04:00 Temperature Temperature Source Pulse Rate 60 Respiratory Rate 18 Blood Pressure 138/87 H O2 Saturation 92 O2 Source Room air Pain Intensity Oxygen O2 Source Room air EKG (time done) 2055: EKG releavant findings:: EKG personally interpreted by author of this note. Relevant findings are: Rate: Rate (enter#) (78) Rhythm: Atrial flutter and Paced Compare to prior EKG: Changed from prior EKG (SPT 10-31-24 the rate is faster) Computer interpretation: Agree with computer Labs Labs: Laboratory Tests 02/03/25 02/03/25 02/04/25 20:45 22:05 03:51 WBC 12.3 H RBC 4.87 Hgb 15.2 Hct 46.1 MCV 94.7 H MCH 31.2 H MCHC 33.0 RDW 13.5 Plt Count 197 MPV 10.2 Neut # (Auto) 9.9 H Lymph # (Auto) 1.3 L [place] # (Auto) 1.0 Eos # (Auto) 0.0 Baso # (Auto) 0.0 Absolute Nucleated RBC 0.00 Nucleated RBC % 0.0 Sodium 134 L Potassium 4.1 Chloride 101 Carbon Dioxide 20 L Anion Gap 13.0 BUN 23 H Creatinine 1.8 H Estimated GFR (MDRD) 37 L Glucose 205 H Lactic Acid 3.2 H* 1.8 Calcium 9.3 Magnesium 1.6 L Total Bilirubin 0.9 AST 12 ALT 7 L Alkaline Phosphatase 79 Total Protein 6.6 Albumin 3.9 Globulin 2.7 Albumin/Globulin Ratio 1.4 Triglycerides 110 Cholesterol 111 LDL Cholesterol, Calc 53 VLDL Cholesterol 22 HDL Cholesterol 36 L LDL/HDL Ratio 1.5 Cholesterol/HDL Ratio 3.1 Lipase 44 TSH 1.65 Urine Color YELLOW Urine Clarity HAZY Urine pH 6.0 Ur Specific [place] 1.010 Urine Protein TRACE Urine Glucose (UA) >=1000 H Urine Ketones 15 H Urine Occult Blood LARGE H Urine Nitrite NEGATIVE Urine Bilirubin NEGATIVE Urine Urobilinogen 1 (NORMAL) Ur Leukocyte Esterase NEGATIVE Urine RBC 11-25 H Urine WBC 0-3 Ur Squamous Epith Cells NONE SEEN Urine Bacteria None Seen Ur Microscopic Review INDICATED Urine Culture Comments NOT INDICATED Nasal Adenovirus (PCR) Nasal B. parapertussis DNA (PCR) Nasal Coronavir 229E PCR Nasal Coronavir HKU1 PCR Nasal Coronavir NL63 PCR Nasal Coronavir OC43 PCR Nasal Enterovir/Rhinovir PCR Nasal Influenza B PCR Nasal Influenza A PCR Nasal Parainfluen 1 PCR Nasal Parainfluen 2 PCR Nasal Parainfluen 3 PCR Nasal Parainfluen 4 PCR Nasal RSV (PCR) Nasal B.pertussis DNA PCR Nasal C.pneumoniae (PCR) Julio Human Metapneumo PCR Nasal M.pneumoniae (PCR) Nasal SARS-CoV-2 (PCR) 02/04/25 04:48 WBC RBC Hgb Hct MCV MCH MCHC RDW Plt Count MPV Neut # (Auto) Lymph # (Auto) [place] # (Auto) Eos # (Auto) Baso # (Auto) Absolute Nucleated RBC Nucleated RBC % Sodium Potassium Chloride Carbon Dioxide Anion Gap BUN Creatinine Estimated GFR (MDRD) Glucose Lactic Acid Calcium Magnesium Total Bilirubin AST ALT Alkaline Phosphatase Total Protein Albumin Globulin Albumin/Globulin Ratio Triglycerides Cholesterol LDL Cholesterol, Calc VLDL Cholesterol HDL Cholesterol LDL/HDL Ratio Cholesterol/HDL Ratio Lipase TSH Urine Color Urine Clarity Urine pH Ur Specific [place] Urine Protein Urine Glucose (UA) Urine Ketones Urine Occult Blood Urine Nitrite Urine Bilirubin Urine Urobilinogen Ur Leukocyte Esterase Urine RBC Urine WBC Ur Squamous Epith Cells Urine Bacteria Ur Microscopic Review Urine Culture Comments Nasal Adenovirus (PCR) NOT DETECTED Nasal B. parapertussis DNA (PCR) NOT DETECTED Nasal Coronavir 229E PCR NOT DETECTED Nasal Coronavir HKU1 PCR NOT DETECTED Nasal Coronavir NL63 PCR NOT DETECTED Nasal Coronavir OC43 PCR NOT DETECTED Nasal Enterovir/Rhinovir PCR NOT DETECTED Nasal Influenza B PCR NOT DETECTED Nasal Influenza A PCR NOT DETECTED Nasal Parainfluen 1 PCR NOT DETECTED Nasal Parainfluen 2 PCR NOT DETECTED Nasal Parainfluen 3 PCR NOT DETECTED Nasal Parainfluen 4 PCR NOT DETECTED Nasal RSV (PCR) NOT DETECTED Nasal B.pertussis DNA PCR NOT DETECTED Nasal C.pneumoniae (PCR) NOT DETECTED Julio Human Metapneumo PCR NOT DETECTED Nasal M.pneumoniae (PCR) NOT DETECTED Nasal SARS-CoV-2 (PCR) NOT DETECTED Rads (name of study) chest: Relevant Findings:: EMP independent interpretation of test (This chest x- ray in general appears dry and despite that there is evidence of infiltrate.) Interpretation: Impression: Mild diffuse interstitial prominence and left lung base opacity, likely infectious versus edema. Consider future imaging surveillance to assess for resolution. Mild cardiomegaly. Left chest wall pulse generator and intra thecal device cardiac electrode leads. Degenerative osseous changes. Procedures IVC sono (time) 2119: Bedside IVC sono: Other (unable to visualize a vessel ) PD Medical Decision Making ED course Complexity details: reviewed old records, reviewed results, re-evaluated patient, considered differential and d/w patient Reviewed Lab Results: We reviewed a complete blood count showing an elevated white blood cell count of 12.3 normal hemoglobin and hematocrit similar to what the patient's had previously and normal platelets of the 197,000. Differential does show a predominance of neutrophils chemistries show a elevated BUN of 23 and elevated creatinine of 1.8 similar to what the patient has had previously. Blood glucose is 205 initial lactic acid is 3.2 a second lactic acid is 1.8. Magnesium is low at 1.6 the remainder of the liver functions are normal. These laboratory tests indicate a degree of dehydration and indicate likely an infectious process. The patient has been diagnosed with pneumonia and sepsis and this is consistent. He appears to be responding to treatment. ED course: Toñito Bess presented to our emergency department with nausea vomiting cough and increased shortness of breath and appears to have pneumonia on evaluation. He is administered Rocephin and intravenous fluid. This patient's tachypnea and struggle along with evidence of sepsis indicate admission to the hospital is indicated. The patient response to the treatments we are providing with intravenous fluid and Rocephin and after a delay admission to the hospitalist. Discharge Plan Discharge Patient Disposition: 66 [facility] DC/Xfer Condition: Stable Clinical Impression: Pneumonia Qualifiers: Pneumonia type: due to unspecified organism Laterality: left Lung location: lower lobe of lung Qualified Code(s): J18.9 - Pneumonia, unspecified organism Sepsis Qualifiers: Sepsis type: sepsis due to unspecified organism Sepsis acute organ dysfunction status: without acute organ dysfunction Qualified Code(s): A41.9 - Sepsis, unspecified organism Interventions: ED Admission Assessment Last Done: 02/04/25 06:10
[2025-02-04] MEDS: traZODone 50 MG TABLET PO STA (03:15)
[2025-02-04] MEDS: rOPINIRole 1 MG TABLET PO STA (03:15)
[2025-02-04] MEDS: HYDROcod/ACETAM 10 MG/325 MG TABLET PO STA (03:15)
[2025-02-04] MEDS: MAGNESIUM SULFATE 2 GRAM 2 GM/50 ML BAG IV ONE (05:06)
[2025-02-04] MEDS ORDERED: ALBUTEROL NEB 2.5 MG/3 ML INH PRN ×2 (05:23→07:21)
[2025-02-04] MEDS ORDERED: ONDANSETRON 4 MG/2 ML VIAL IVP PRN (05:31)
[2025-02-04] MEDS ORDERED: ALBUTEROL 1 PUFF INH PRN (05:31)
[2025-02-04] MEDS ORDERED: MELATONIN 3 MG TABLET PO PRN (05:31)
--- NOTE | 2025-02-04 05:35 | HISTORY & PHYSICAL EXAMINATION ---
Chief Complaint Chief Complaint Chief Complaint: sob, nausea, vomiting, confusion History of Present Illness History of Present Illness HPI Comment/Other: pt with h/o pulm fibrosis s/p asbestos exposure along with chronic in-dwelling moreno and t2dm, presents with nausea / vomiting and subjective sob that developed over last 24 hours. no fevers, chill, chest pain, sick contacts, or recent travel. pt lives at home with (who has dementia). no dysuria or hematuria. no diarrhea. pt states he does have episodes of feeling sob but his O2 sat on RA is usually normal. he also states feeling confused last night w/o loc or head injuries. Review of Systems Status of ROS: 10 or more systems reviewed and unremarkable except as noted in history and below PFSH Active Problems All Active Problems (Updated 02/04/25 @ 04:46 by Avi Porter MD) Sepsis (Acute) Pneumonia (Acute) Pressure ulcer of sacral region, stage 2 (Acute) BPH (benign prostatic hyperplasia) (Acute) UTI (urinary tract infection) (Acute) Local infection of the skin and subcutaneous tissue, unspecified (Acute) Other abnormalities of breathing (Acute) prison (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 of anticoagulants (Acute) Orthostatic hypotension (Acute) Other skin changes (Acute) Urinary retention (Acute) CHF (congestive heart failure) (Acute) Type 2 diabetes mellitus with other skin ulcer (Acute) Localized edema (Acute) Venous insufficiency (chronic) (peripheral) (Acute) Dyspnea (Acute) Mobility poor (Acute) Memory changes (Acute) Chronic GERD (Acute) Restless leg syndrome (Acute) CKD stage 3 due to type 2 diabetes mellitus (Acute) Sick sinus syndrome (Acute) 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 (Date/Year): 1988 Number of Years Smoked: 15 How many cigarettes a day do you smoke? (20 cigarettes=1 Pk): 40 Do you vape?: No Relationship: Do you feel safe in your home environment?: Yes Suffered physical, verbal, emotional, or financial abuse?: No History of Abuse: No ETOH Use: None Substance Use: denies use Meds/Allgy Home Medications Ambulatory Orders Medication Instructions Recorded Confirmed renae.stocking,knee,reg,smal #2 ea 04/28/24 01/29/25 (T.E.D. Anti-Embolism Stocking) Permanent Disabled Placard 08/21/24 01/29/25 amlodipine 10 mg tablet 10 mg PO QDAY 08/21/2402/04 apixaban 5 mg tablet (Eliquis) 5 mg PO BID 08/21/24 atorvastatin 20 mg tablet 20 mg PO QDAY 08/21/2402/04 cetirizine 10 mg tablet 10 mg PO QDAY 08/21/2402/04 duloxetine 60 mg capsule,delayed 60 mg PO DAILY 02/04/25 release empagliflozin 25 mg tablet 25 mg PO QDAY 08/21/2401/11 ([employer]) flash glucose scanning reader 08/21/24 01/29/25 (Helpful AllianceStyle Theresa 14 Day [place]) flash glucose sensor (AMSC 08/21/24 01/29/25 Theresa 2 Sensor kit) furosemide 20 mg tablet 40 mg PO QDAY 08/21/2402/04 insulin glargine 100 unit/mL (3 26 unit subcut BID 06/0602/04/25 mL) subcutaneous pen (Lantus Solostar U-100 Insulin) losartan 100 mg tablet 100 mg PO QDAY 08/21/2401/12 omeprazole 20 mg capsule,delayed 20 mg PO QDAY 4 02/04/25 release oxcarbazepine 300 mg tablet 300 mg PO BID 08/21/24 oxybutynin chloride 5 mg 5 mg PO DAILY 08/21/2402/04 tablet,extended release 24 hr ropinirole 2 mg tablet 2 mg PO HS 08/21/24 02/04/25 spironolactone 25 mg tablet 25 mg PO QDAY 08/21/24 walker 08/21/24 01/29/25 insulin lispro 200 unit/mL (3 mL) 1 sliding scale dose subcut TID 10/17/24 02/04/25 subcutaneous pen (Humalog KwikPen U-200 Insulin) tirzepatide [Mounjaro] 2.5 mg subcut .once a week 0 10/17/24 02/04/25 albuterol sulfate 90 mcg/actuation 2 puff inhalation Q ID PRN 10/31/24 01/29/25 aerosol inhaler (Ventolin HFA) shortness of breath or wheezing #8.5 grams trazodone 50 mg tablet 100 mg (2 x 50 mg) PO QDAY # 60 tabs 12/31/24 02/04/25 fluticasone propionate 50 See Rx Instructions .Route 0 01/20/25 02/04/25 mcg/actuation nasal .COMPLEX #16 grams spray,suspension sulfamethoxazole 400 1 tab PO BID #14 tabs 02/04/25 mg-trimethoprim 80 mg tablet (Bactrim) tamsulosin 0.4 mg capsule 0.8 mg PO HS 02/04/25 Allergies Allergies Allergy/AdvReac Type Severity Reaction Status Date / Time hydrochlorothiazide Allergy Mild "I don't Verified 02/03/25 20:55 know" lisinopril AdvReac Respiratory Verified 02/03/25 20:55 nickel AdvReac Rash Verified 02/03/25 20:55 Exam Exam Vital Signs: Vital Signs x48h Temp Pulse Resp BP Pulse Ox 02/04/25 04:00 60 18 138/87 H 92 02/04/25 02:23 36.6 C 61 27 H 128/56 L 97 02/04/25 02:00 63 16 132/75 H 97 02/04/25 00:55 64 18 118/58 L 95 02/03/25 22:55 65 29 H 135/62 H 97 Constitutional normal general appearance and no apparent distress HENMT normocephalic and head/scalp atraumatic Eyes EOMs intact bilaterally Neck/C-Spine visual inspection normal Respiratory no retractions and no use of accessory muscles details per ed charting Cardiovascular details per ed charting Extremities no deformity 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 Psychiatry mental status grossly normal Conclusion/Plan Problem List (1) Pneumonia: Qualifiers: Laterality: left Lung location: lower lobe of lung Pneumonia type: due to unspecified organism Qualified Code(s): J18.9 - Pneumonia, unspecified organism Lab Results 02/03/25 20:45 02/03/25 20:45 Other Other Results/Comments: pt with - - pneumonia resp viral panel pending rocephin + azithromycin contributory to confusion + nausea/vomiting - nausea/vomiting in setting of above no abd pain, no diarrhea zofran prn, gentle ivf - confusion toxic, metabolic self-reported, currently aaox3 no focal deficits monitor - sob subjective, currently normal O2 sat on RA h/o asbestos exposure and a-fib albuterol prn exacerbated d/t pna - torrey on ckd check renal sono gentle ivf for now encourage po intake likely acute pre-renal given recent nausea and vomiting per pt - hypomagnesemia replete f/u labs, cultures, resp panel, replete electrolytes further orders per clinical course
[2025-02-04 05:45] LABS: B. PARAPERTUSSIS- RESP PCR PAN NOT DETECTED; B. PERTUSSIS- RESP PCR PANEL NOT DETECTED; C. PNEUMONIAE- RESP PCR PANEL NOT DETECTED; CORONAVIRUS 229E-RESP PCR NOT DETECTED; CORONAVIRUS HKU1-RESP PCR NOT DETECTED; CORONAVIRUS NL63-RESP PCR NOT DETECTED; CORONAVIRUS OC43-RESP PCR NOT DETECTED; HUMAN METAPNEUMOVIRUS NOT DETECTED; INFLUENZA A- RESP PCR PANEL NOT DETECTED; M. PNEUMONIAE- RESP PCR PANEL NOT DETECTED; PARAINFLUENZA VIRUS 1 NOT DETECTED; PARAINFLUENZA VIRUS 2 NOT DETECTED; PARAINFLUENZA VIRUS 4 NOT DETECTED; RHINOVIRUS/ENTEROVIRUS NOT DETECTED; RSV- RESP PCR PANEL NOT DETECTED; SARS-CoV-2 -RESP PCR PANEL NOT DETECTED
[2025-02-04 05:46] LABS: INFLUENZA B - RESP PCR PANEL NOT DETECTED
[2025-02-04 06:02] LABS: CHOL/HDL RATIO 3.1 (<5.0); CHOLESTEROL 111 mg/dL; HDL CHOLESTEROL 36 mg/dL; LDL CHOLESTEROL,CALCULATED 53 mg/dL; LDL/HDL RATIO 1.5 (<3.6); TRIGLYCERIDES 110 mg/dL; VLDL CHOLESTEROL 22 mg/dL
[2025-02-04 06:31] LABS: THYROID STIMULATING HORMONE 1.65 uIU/mL (0.34-5.60)
[2025-02-04] MEDS: PANTOPRAZOLE 40 MG TABLET PO SCH (06:31)
[2025-02-04] MEDS: LOSARTAN 50 MG TABLET PO SCH (06:36)
[2025-02-04] MEDS: SPIRONOLACTONE 25 MG TABLET PO SCH (06:36)
[2025-02-04] MEDS: FUROSEMIDE 40 MG TABLET PO SCH (06:36)
[2025-02-04] MEDS: amLODIPine 5 MG TABLET PO SCH (06:36)
[2025-02-04] MEDS: LACTATED RINGERS 1,000 ML IV SCH (06:54)
[2025-02-04] MEDS: INSULIN LISPRO 300 UNIT/3 ML PEN SUBQ SCH (07:56)
[2025-02-04 08:11] LABS: HGB - HEMOGLOBIN 13.5 g/dL (14.0-18.0); MEAN CORPUSCULAR HEMOGLOBIN 31.6 pg (27.0-31.0); MEAN CORPUSCULAR HGB CONC 32.9 g/dL (32.0-36.0); RED BLOOD COUNT 4.27 10^6/uL (4.70-6.10); RED CELL DISTRIBUTION WIDTH 13.9 % (12.0-15.0); WHITE BLOOD COUNT 8.4 x10^3/uL (4.8-10.8)
[2025-02-04 08:23] LABS: ESTIMATED AVERAGE GLUCOSE 177 mg/dL (70-100); HEMOGLOBIN A1c% 7.8 % (4.27-6.07)
[2025-02-04 08:32] LABS: CALCIUM 8.7 mg/dL (8.5-10.3); CREATININE 1.9 mg/dL (0.6-1.3); POTASSIUM 3.6 mmol/L (3.5-4.5)
[2025-02-04] MEDS: ATORVASTATIN 10 MG TABLET PO SCH (08:40)
[2025-02-04] MEDS: AZITHROMYCIN INJ 500 MG in SODIUM CHLORIDE 0.9% 250 ML IV SCH (08:40)
[2025-02-04] MEDS: ASCORBIC ACID 500 MG TABLET PO SCH (08:40)
[2025-02-04] MEDS: APIXABAN 5 MG TABLET PO SCH (08:40)
[2025-02-04] MEDS: SOLIFENACIN SUCCINATE 5 MG TABLET PO SCH (08:41)
[2025-02-04] MEDS: DULoxetine 60 MG CAPSULE PO SCH (08:41)
[2025-02-04] MEDS: traMADol 50 MG TABLET PO PRN (08:41)
[2025-02-04] MEDS: LACTOBACILLUS RHAMNOSUS GG CAPSULE PO SCH (08:41)
[2025-02-04] MEDS: OXcarbazepine 150 MG TABLET PO SCH (09:01)
[2025-02-04] MEDS: FLUTICASONE NASAL SPRAY NAS SCH (09:01)
--- NOTE | 2025-02-04 11:28 | PHARMACY PROGRESS NOTE ---
Best Possible Medication History Admit Date and Time: 02/04/25 0530 Home Medications Medication Instructions Recorded Confirmed Type renae.stocking,knee,reg,smal #2 ea 04/28/24 01/29/25 Rx (T.E.D. Anti-Embolism Stocking) Permanent Disabled Francisco J 08/21/24 01/29/25 History amlodipine 10 mg tablet 10 mg PO QDAY 08/21/2402/04 History apixaban 5 mg tablet (Eliquis) 5 mg PO BID 08/21/24 History atorvastatin 20 mg tablet 20 mg PO QDAY 08/21/2402/04 History cetirizine 10 mg tablet 10 mg PO QDAY 08/21/2402/04 History duloxetine 60 mg capsule,delayed 60 mg PO DAILY 02/04/25 History release empagliflozin 25 mg tablet 25 mg PO QDAY 08/21/2401/12 History (Jardiance) flash glucose scanning reader 08/21/24 01/29/25 Histo ry (FreeStyle Theresa 14 Day [place]) flash glucose sensor (FreeStyle 08/21/24 01/29/25 [employer] Theresa 2 Sensor kit) furosemide 20 mg tablet 40 mg PO QDAY 08/21/2402/04 History insulin glargine 100 unit/mL (3 44 unit subcut BID 06/0602/04/25 History mL) subcutaneous pen (Lantus Solostar U-100 Insulin) losartan 100 mg tablet 100 mg PO QDAY 08/21/2401/12 History omeprazole 20 mg capsule,delayed 20 mg PO QDAY 4 02/04/25 History release oxcarbazepine 300 mg tablet 300 mg PO BID 08/21/24 History oxybutynin chloride 5 mg 5 mg PO DAILY 08/21/2402/04 History tablet,extended release 24 hr ropinirole 2 mg tablet 2 mg PO HS 08/21/24 02/04/25 History spironolactone 25 mg tablet 25 mg PO QDAY 08/21/24 History walker 08/21/24 01/29/25 History insulin lispro 200 unit/mL (3 mL) 1 sliding scale dose subcut TIDWM 02/04/25 05/25/25 History subcutaneous pen (Humalog KwikPen U-200 Insulin) tirzepatide [Mounjaro] 2.5 mg subcut .once a week 0 10/17/24 02/04/25 History fluticasone propionate 50 See Rx Instructions .Route 0 01/20/25 02/04/25 Rx mcg/actuation nasal .COMPLEX #16 grams spray,suspension docusate sodium 100 mg capsule 300 mg PO DAILY 02/04/25 History (Col-Rite) metoprolol succinate 25 mg 25 mg PO DAILY 02/04/25 History tablet,extended release 24 hr tamsulosin 0.4 mg capsule 0.8 mg PO HS 02/04/25 History trazodone 50 mg tablet 200 mg PO QPM 02/04/2502/04 History Processed by: Pharmacy Medications reviewed in ED?: No Medication History completed: Yes Patient Interview: Completed Secondary Source(s): Written medication list, Pharmacy records and Insurance records [facility] Statement: As the person ultimately responsible for medication therapy, providers are able to order a medication from an existing home medication list in [facility] via the "Reconcile Routine" prior to Confirmation of that medication by developer support engineer. Such practice is discouraged except when the physician, in their clinical judgment, deems that a medical need exists for a medication without regard to previous use.
--- NOTE | 2025-02-04 11:50 | Discharge Summary ---
Discharge Summary Admit Date: 02/04/25 Discharge Date: 02/04/25 Discharging Provider: Dr. Teresa Deleon Primary Care Provider: Jackie Barnett Code Status: Attempt Resuscitation Discharge Facility Name: Home with Home Health DIAGNOSES Admission Diagnoses: Pneumonia Nausea/vomiting Confusion Shortness of breath RYAN on CKD Hypomagnesemia Discharge Diagnoses with Status of Each Condition: Pneumoniapatient on room air, no white count. Continue course with Augmentin and azithromycin to complete community-acquired pneumonia treatment. Nausea/vomitingresolved. Acute kidney injurylikely prerenal due to nausea and vomiting. Advised to hold his Lasix until his nausea and vomiting have completely resolved. Advised to hold his spironolactone and his losartan until recheck with primary care provider in the outpatient setting. Confusionresolved. Shortness of breathresolved. HPI History of Present Illness: Per Dr. 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 no fevers, chill, chest pain, sick contacts, or recent travel. pt lives at home with (who has dementia). no dysuria or hematuria. no diarrhea. pt states he does have episodes of feeling sob but his O2 sat on RA is usually normal. he also states feeling confused last night w/o loc or head injuries. CONSULTS | PROCEDURES Consultations: - Procedures: chest x-ray HOSPITAL COURSE Hospital Course: Patient is a 79-year-old male with a history of pulmonary fibrosis who presented for worsening shortness of breath, as well as confusion. He was found to have a pneumonia. He was treated with one day of IV antibiotics. His dyspnea has resolved, as well as his acute metabolic encephalopathy. He was found to have a slight elevation in his creatinine. He was advised to hold his Lasix until his nausea and vomiting had completely resolved, and then hold his losartan, spironolactone until he sees his primary care doctor and has his creatinine rechecked. Patient was provided with home health services to be continued on discharge. He was discharged home advised to follow-up closely with his primary care provider. ALLERGIES Allergies Allergy/AdvReac Type Severity Reaction Status Date / Time hydrochlorothiazide Allergy Mild "I don't Verified 02/03/25 20:55 know" lisinopril AdvReac Respiratory Verified 02/03/25 20:55 nickel AdvReac Rash Verified 02/03/25 20:55 MEDICATIONS Ambulatory Orders Medication Instructions Recorded Confirmed renae.stocking,knee,reg,smal #2 ea 04/28/24 01/29/25 (Celia Anti-Embolism Stocking) Permanent Disabled Placard 08/21/24 01/29/25 amlodipine 10 mg tablet 10 mg PO QDAY 08/21/2402/04 apixaban 5 mg tablet (Eliquis) 5 mg PO BID 08/21/24 atorvastatin 20 mg tablet 20 mg PO QDAY 08/21/2402/04 cetirizine 10 mg tablet 10 mg PO QDAY 08/21/2402/04 duloxetine 60 mg capsule,delayed 60 mg PO DAILY 02/04/25 release empagliflozin 25 mg tablet 25 mg PO QDAY 08/21/2401/12 (Jardiance) flash glucose scanning reader 08/21/24 01/29/25 ([employer] Theresa 14 Day [place]) flash glucose sensor ([employer] 08/21/24 01/29/25 Theresa 2 Sensor kit) furosemide 20 mg tablet 40 mg PO QDAY 08/21/2402/04 insulin glargine 100 unit/mL (3 44 unit subcut BID 06/0602/04/25 mL) subcutaneous pen (Lantus Solostar U-100 Insulin) losartan 100 mg tablet 100 mg PO QDAY 08/21/2401/12 omeprazole 20 mg capsule,delayed 20 mg PO QDAY 4 02/04/25 release oxcarbazepine 300 mg tablet 300 mg PO BID 08/21/24 oxybutynin chloride 5 mg 5 mg PO DAILY 08/21/2402/04 tablet,extended release 24 hr ropinirole 2 mg tablet 2 mg PO HS 08/21/24 02/04/25 spironolactone 25 mg tablet 25 mg PO QDAY 08/21/24 walker 08/21/24 01/29/25 insulin lispro 200 unit/mL (3 mL) 1 sliding scale dose subcut TIDWM 10/17/24 02/04/25 subcutaneous pen (Humalog KwikPen U-200 Insulin) tirzepatide [Mounjaro] 2.5 mg subcut .once a week 0 10/17/24 02/04/25 fluticasone propionate 50 See Rx Instructions .Route 0 01/20/25 02/04/25 mcg/actuation nasal .COMPLEX #16 grams spray,suspension amoxicillin 875 mg-potassium 1 tab PO BID 4 days #8 ta bs 02/04/25 clavulanate 125 mg tablet azithromycin 500 mg tablet 500 mg PO DAILY 2 days #2 t abs 02/04/25 docusate sodium 100 mg capsule 300 mg PO DAILY 5 02/04/25 (Col-Rite) metoprolol succinate 25 mg 25 mg PO DAILY 02/04/25 tablet,extended release 24 hr tamsulosin 0.4 mg capsule 0.8 mg PO HS 02/04/25 trazodone 50 mg tablet 200 mg PO QPM 02/04/2502/04 PHYSICAL EXAM AT DISCHARGE Vital Signs: Vital Signs x48h Temp Pulse Resp BP Pulse Ox 02/04/25 12:37 98.2 F 62 16 122/51 L 96 General Appearance: positive No acute distress and Alert; negative Anxious Eyes Bilateral: positive Normal inspection, PERRL and EOMI ENT: positive ENT inspection nml, Pharynx nml and No signs of dehydration Neck: positive Nml inspection, Thyroid nml and No JVD Respiratory: positive Chest non-tender, No respiratory distress and Breath sounds nml Cardiovascular: positive Regular rate & rhythm, No murmur and No gallop; negative Tachycardia Peripheral Pulses: positive 2+ Abdomen: positive Non-tender, No organomegaly, Nml bowel sounds and No distention; negative Tenderness Back: positive Nml inspection; negative CVA tenderness (R) or CVA tenderness (L) Skin: positive Color nml, No rash, Warm and Dry Extremities: positive Non-tender, Full ROM and Pedal edema (trace) Neurologic/Psychiatric: positive Oriented x3, Motor nml and Mood/affect nml LABS 02/04/25 08:05 02/04/25 08:05 DIAGNOSTIC IMAGING Diagnostic Imaging Results: Final report reviewed FOLLOW UP Follow Up: Follow up with PCP. Follow up with pulmonology. TIME SPENT Time Spent in Discharge (Minutes): 35 Discharge Plan Discharge Patient Disposition: Home Health Service Condition: Stable Medically Cleared Comments:: Pt. being discharged home with Home Health provided by [facility] Prescriptions: New amoxicillin-pot clavulanate 875-125 mg tablet 1 tab PO BID 4 Days Qty: 8 0RF azithromycin 500 mg tablet 500 mg PO DAILY 2 Days Qty: 2 0RF Continued fluticasone propionate 50 mcg/actuation spray,suspension See Rx Instructions .ROUTE .COMPLEX Qty: 16 5RF Dose Instruction: USE 1 SPRAY IN EACH NOSTRIL DAILY Rx Instructions: USE 1 SPRAY IN EACH NOSTRIL DAILY (DME) T.E.D. Anti-Embolism Stocking 1 EACH [facility] 1 ea miscellaneous DAILY Qty: 2 0RF tamsulosin 0.4 mg capsule 0.8 mg PO HS metoprolol succinate 25 mg tablet extended release 24 hr 25 mg PO DAILY docusate sodium [Col-Rite] 100 mg capsule 300 mg PO DAILY trazodone 50 mg tablet 200 mg PO QPM amlodipine 10 mg tablet 10 mg PO QDAY Rx Instructions: Take 1 tablet by mouth once a day atorvastatin 20 mg tablet 20 mg PO QDAY Rx Instructions: Take 1 tablet by mouth once a day cetirizine 10 mg tablet 10 mg PO QDAY Rx Instructions: Take 1 tablet by mouth (DME) Permanent Disabled Placard [facility] See Rx Instructions .Route Rx Instructions: As directed duloxetine 60 mg capsule,delayed release(DR/EC) 60 mg PO DAILY Eliquis 5 mg tablet 5 mg PO BID Rx Instructions: Take 1 tablet by mouth twice a day (DME) FreeStyle Theresa 14 Day [place] [facility] See Rx Instructions .Route Rx Instructions: As directed (DME) FreeStyle Theresa 2 Sensor Kit See Rx Instructions .Route Rx Instructions: As directed Jardiance 25 mg tablet 25 mg PO QDAY Rx Instructions: 1 tablet by mouth once a day insulin glargine [Lantus Solostar U-100 Insulin] 100 unit/mL (3 mL) insulin pen 44 unit subcut BID omeprazole 20 mg capsule,delayed release(DR/EC) 20 mg PO QDAY Rx Instructions: Take 1 capsule by mouth once a day one hour before meals oxcarbazepine 300 mg tablet 300 mg PO BID oxybutynin chloride 5 mg tablet extended release 24hr 5 mg PO DAILY Rx Instructions: Take 1 tablet by mouth once a day ropinirole 2 mg tablet 2 mg PO HS Rx Instructions: Take 1 tablet by mouth once a day (BERNARDINO) [facility] See Rx Instructions .Route Rx Instructions: As directed Humalog JonoPen Insulin 200 unit/mL (3 mL) insulin pen 1 sliding scale dose subcut TIDWM Patient Comments: Updated at [facility] Endocrinology 09/20/24 Rx Instructions: inject 24 units with breakfast, 15 units with lunch and 30 units with supper (max dose is 100 units/day) tirzepatide [Mounjaro] 2.5 mg subcut .once a week Patient Comments: Updated at [facility] Endocrinology 09/20/24 Held furosemide 20 mg tablet 40 mg PO QDAY Hold Instructions: Resume on 02/09/25. Please resume once your nausea and vomiting subside completely. losartan 100 mg tablet 100 mg PO QDAY Hold Instructions: Resume on 02/18/25. Please hold after follow up with PCP and recheck of your creatinine levels. Rx Instructions: Take 1 tablet by mouth once a day spironolactone 25 mg tablet 25 mg PO QDAY Hold Instructions: Resume on 02/11/25. Please hold after follow up with PCP and recheck of your creatinine levels. Rx Instructions: take 1 tablet by mouth once daily Diet: Regular Health Concerns: You came in because you were feeling very short of breath. We did a chest x-ray and it revealed that you do have possible pneumonia. We started you on IV antibiotics, and today you feel better. I would like you to continue 4 more days of Augmentin, as well as 2 more days of azithromycin. I would also like you to follow-up closely with your primary care provider and your armed security officer. Please continue all your home medications including your inhalers. I advised you to hold your Lasix until your nausea and vomiting have completely resolved. Also should hold your spironolactone and losartan until recheck with primary care provider in the outpatient setting of your kidney levels. We talked about how it is difficult for you to get around at home. I understand that you are looking placement for yourself and your . I have ordered home care to assist you with your activities of daily living. This also includes a social human services assistants, who I am hoping will help with placement for you. We are glad you are feeling better, thanks for allowing us to take care of you. Print Language: Iranian Patient Instructions: ED Pneumonia Adult Stand Alone Forms: PCP List Follow-up Care: Jackie Barnett MD [Primary Care Provider] -
[2025-02-04 12:39] VITALS: BP 122/51; TEMP 98.2; O2SAT 96
[2025-02-04] MEDS: HYDROcod/ACETAM 5/325 MG TABLET PO ONE (13:36)
[2025-02-04] MEDS: BENZONATATE 100 MG CAPSULE PO PRN (13:37)
[2025-02-04] MEDS: BENZOCAINE/MENTHOL LOZENGE MM PRN (13:37)
--- NOTE | 2025-02-04 19:25 | Ultrasound Report ---
PROCEDURE: US Renal (Retroperitoneal) INDICATIONS: torrey TECHNIQUE: Real-time scanning was performed of the retroperitoneal organs, with image documentation. COMPARISON: None. FINDINGS AND IMPRESSION: Kidneys were not seen due to body habitus. Bladder catheter in place, limiting evaluation. Nondiagnostic exam. Reviewed by: Mir Oliveira MD on 02/04/2025 7:24 PM PDT Approved by: Mir Oliveira MD on 02/04/2025 7:24 PM PDT Station ID: [id number]
[2025-02-04] MEDS ORDERED: rOPINIRole 1 MG TABLET PO SCH (21:00)
[2025-02-04] MEDS ORDERED: TAMSULOSIN 0.4 MG CAPSULE PO SCH (21:00)
[2025-02-04] MEDS ORDERED: cefTRIAXone 1 GM in SODIUM CHLORIDE 0.9% MINIBAG 100 ML IV SCH (21:00)
== END 2025-02-04 15:00 | disposition home health service (06) ==
LOC: EDBD → ED 20:37 → MS3 20:37
PROVIDERS: ADMIT Student in an Organized Health Care Education/Training Program; ATTEND Student in an Organized Health Care Education/Training Program
DX: R41.0 Disorientation, unspecified; A41.9 Sepsis, unspecified organism; E11.22 Type 2 diabetes mellitus with diabetic chronic kidney disease; N18.9 Chronic kidney disease, unspecified; I48.91 Unspecified atrial fibrillation; I13.0 Hypertensive heart and chronic kidney disease with heart failure and stage 1 through stage 4 chronic kidney disease, or unspecified chronic kidney disease; J18.9 Pneumonia, unspecified organism; G93.41 Metabolic encephalopathy; Z79.01 Long term (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 of anticoagulants; I50.9 Heart failure, unspecified; Z79.84 Long term (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 of oral hypoglycemic drugs; N17.9 Acute kidney failure, unspecified; Z79.4 Long term (current) use of insulin; E83.42 Hypomagnesemia; R11.2 Nausea with vomiting, unspecified; E86.0 Dehydration; J84.10 Pulmonary fibrosis, unspecified; Z77.090 Contact with and (suspected) exposure to asbestos; Z87.891 Personal history of nicotine dependence